=== PATIENT | male | born 1975 | race Caucasian/White ===

== ENCOUNTER 2016-08-23 10:14 | Emergency (ER) | payer OTHER ==
[~2016-08-23] VITALS: Ht 188 cm; Wt 82.7 kg
[2016-08-23 10:17] VITALS: BP 133/88; PULSE 97; RESP 17; O2SAT 98
--- NOTE | 2016-08-23 10:33 | ED.REPORT ---
HPI-Rash / Abscess Date of Service Aug 23, 2016 ED Provider: Dr. Felix Small The patient is a 41 year old male w/ a hx of epilepsy who presents to the ED c/ o an abscess in the left armpit onset a few days ago. Pt describes the abscess as painful. Nursing Notes Stated Complaint: BOIL UNDER ARM Chief Complaint: Skin Rash/Abscess Nursing Notes Reviewed: Yes Allergies: Coded Allergies: No Known Allergies (Unverified , 08/23/16) Scheduled Sulfamethoxazole/Trimeth 800-160 mg (Bactrim DS) 1 Each Tablet 1 TABLET PO BID Scheduled PRN Hydrocodone-Acetaminophen 5-325 mg (Hydrocodone-Acetaminophen 5-325 mg) 1 Each Tablet 1 TABLET PO Q4H PRN PRN For Pain General Time Seen by MD: 10:32 Chief Complaint Abscess Hx Obtained From: Patient Arrived By: Walk-in Onset Occurred: 2 days ago Symptom Duration: Since onset Location: : Arm Quality: Painful Severity: Current: No pain currently Recent Healthcare: Recent doctor visit Similar Sx Previous: No Review of Systems Constitutional: Denies: Chills, Fever Musculoskeletal: Denies: Extremity pain, Extremity swelling, Joint pain, Joint swelling Skin: Reports Swelling (abscess in left armpit) Complete sys rev & neg: except as marked. Hematologic: Denies Bleeding Physical Exam Initial Vital Signs Vital Signs (First) Date Time Temp Pulse Resp B/P Pulse Ox O2 Delivery O2 Flow Rate FiO2 08/23/16 10:17 36.5 97 17 133/88 98 Room Air Initial VS: Reviewed General/Constitutional: Awake, Alert, No acute distress, Cooperative Abscess #1 Location/Condition: Positive: Location (left armpit) Head / Eyes: Normocephalic swollen right eye healing fractured right jaw (from previous incident) healing fractured right scalp (from previous incident) ENT: Atraumatic, Mucous membranes moist Upper Extremity / MS: Atraumatic, Inspection NL, Full range of motion, No deformity Lower Extremity / Pelvis / MS: Atraumatic, Inspection NL, Full range of motion , No deformity Neurologic: Oriented X3, Speech NL, No motor deficits Psychiatric: Affect NL, Mood NL Procedures Incision & Drainage Abscess Time: 10:44 Procedure Performed by: ED physician Consent / Setup / Site Prep: Informed consent provided, Consent from patient , Hand hygiene observed, Stand sterile technique, Standard surgical scrub, Sterile drapes applied Location of Abscess: left armpit Skin Preparation Agent: Betadine Local Anesthesia: Lidocaine 1% Post-Procedure / Complications: Dressing applied, No complications, Condition improved, Tolerated procedure well, Patient stable Re-Eval/Medical Decision Re-Evaluation/Progress : Time of Eval: 10:40 Re-Evaluation/Progress Note: Abscess incision and drainage performed. Bedside ultrasound used. Pt tolerated procedure well. Plan for discharge with pain medication. Pt understands and agrees with plan. All questions addressed. Counseled Regarding: Diagnosis, Lab results, Need for follow-up, When/why to return to ED Discharge & Departure Impression: Primary Impression: Abscess Disposition: Home Discharge Condition All VS Reviewed: Yes Condition: Stable Patient Instructions: Abscess (ED), Abscess Incision and Drainage (DC) Additional Instructions: Thank you for entrusting us with your care today. I drained and bandaged the abscess in your armpit. Keep the wound clean and dry, apply antibiotic ointment twice daily. The abscess should improve over the next few days. Take Ibuprofen and Tylenol as directed for pain. I am sending you home with pain medication. Do not drink alcohol, do drugs, or operate heavy machinery while on narcotics. Return to the Emergency Department if you experience any new or worsening symptoms including any signs of infection such as increased swelling, redness, warmth, fever or chills. I hope your fractures continue to heal quickly! Take the prescribed antibiotic (trimethoprim sulfa) twice daily for 7 days. Felix Small MD Aug 23, 2016 10:33 Bernadine Lee Aug 23, 2016 10:41
[2016-08-23] MEDS ORDERED: SULF1TAB7 PO (10:58)
[2016-08-23] MEDS ORDERED: HYDR-4003 PO (10:58)
== END 2016-08-23 11:08 | disposition home or self-care (01) ==
LOC: SED 10:14
DX: L02.412 Cutaneous abscess of left axilla (principal)

== ENCOUNTER 2016-08-27 19:12 | Emergency (ER) | payer OTHER ==
[~2016-08-27] VITALS: Ht 188 cm; Wt 77.3 kg
[~2016-08-27 19:12] MED LIST: HYDR-4003 PO; SULF1TAB7 PO
[2016-08-27 19:23] VITALS: BP 154/83; PULSE 101; RESP 21; O2SAT 97
--- NOTE | 2016-08-27 20:49 | ED.REPORT ---
HPI-General Illness Date of Service Aug 27, 2016 ED Provider: Thaddeus Matta MD A 41 year old male with a history of seizures presents to the ED complaining of an abscess. The pt was seen in the ED on 08/23/2016 to have an abscess under his left arm drained and was prescribed Bactrim at that time. He is still taking this medication but has noticed that the original abscess is still present and another has formed just under it. The pt denies fever. Nursing Notes Stated Complaint: ABSCESSES UNDER LEFT ARM Chief Complaint: Skin Rash/Abscess Nursing Notes Reviewed: Yes Allergies: Coded Allergies: No Known Allergies (Unverified , 08/27/16) Scheduled Sulfamethoxazole/Trimeth 800-160 mg (Bactrim DS) 1 Each Tablet 1 TABLET PO BID Scheduled PRN Hydrocodone-Acetaminophen 5-325 mg (Hydrocodone-Acetaminophen 5-325 mg) 1 Each Tablet 1 TABLET PO Q4H PRN PRN For Pain General Time Seen by MD: 20:47 Chief Complaint Other (Abscess) Hx Obtained From: Patient Arrived By: Walk-in Sudden in Onset?: No Onset Occurred: 4 days ago Symptom Duration: Since onset Recent Healthcare: Recent doctor visit Similar Sx Previous: Yes Past Medical History Past Medical History seizures Past Surgical History none reported Smoking History Unknown if Ever Smoker Social History recently moved to [facility] Ambulatory Status Independent Review of Systems abscess pain of left axilla Full Review of Systems Constitutional: Denies: Fever Respiratory: Denies: Non-productive cough, Shortness of breath Cardiovascular: Denies: Chest pain GI: Denies: Abdominal pain, Vomiting Complete sys rev & neg: except as marked. Physical Exam Vital Signs Vital Signs Date Time Temp Pulse Resp B/P Pulse Ox O2 Delivery O2 Flow Rate FiO2 08/27/16 21:28 90 16 149/77 97 Room Air 08/27/16 19:23 37.2 101 21 154/83 97 Room Air Initial VS: Reviewed General/Constitutional: Awake, Alert Head / Eyes: Atraumatic, Normocephalic, PERRL, EOMI ENT: Atraumatic, Airway patent, Mucous membranes moist Neck: Atraumatic, Supple, Full range of motion Respiratory / Chest: Atraumatic, Breath sounds NL, Breath sounds = bilat, No respiratory distress Cardiovascular: Heart rate NL, Regular rhythm, Heart sounds NL, No gallop, No murmurs, No rubs Abdomen: Atraumatic, Soft, Non-tender Back: Atraumatic, Full range of motion Upper Extremities Upper Extremity / MS: Full range of motion, Neurologic intact, Vascular intact full active range of motion of the left shoulder Lower Extremity / Pelvis / MS: Atraumatic, Full range of motion Skin: Color NL, Warm, Dry two axillary abscesses of approximately 5 mm each tender and firm without surrounding warmth or erythema Neurologic: Oriented X3, Speech NL, No motor deficits, No sensory deficits Psychiatric: Affect NL, Mood NL Procedures Incision & Drainage Abscess Time: 20:57 Procedure Performed by: ED physician Consent / Setup / Site Prep: Informed consent provided, Consent from patient , Time-out performed, Hand hygiene observed, Stand sterile technique, Standard surgical scrub, Sterile drapes applied Location of Abscess: left axilla Skin Preparation Agent: Betadine, Other (Wound rinse solution) Local Anesthesia: Lidocaine w epi 1% Incised Abscess with Scalpel: #11 Pus Drained: Small Irrigation: Yes Post-Procedure / Complications: Packing placed, Dressing applied, No complications, Condition improved, Tolerated procedure well, Patient stable Re-Eval/Medical Decision Med Decision/Clinical Course Looks well, mild tachycardia wound culture sent. Source of Hx: Old records Time of Eval: 20:57 Patient Status: Condition improved Re-Evaluation/Progress Note: Pt rechecked and I&D abscess is performed. Pt tolerated well and there were no complications. The diagnosis and plan for discharge are discussed. The pt understands and agrees with the plan. All questions are addressed at this time. Counseled Regarding: Diagnosis, Need for follow-up, When/why to return to ED Discharge & Departure Primary Impression: Abscess Disposition: Home Discharge Condition All VS Reviewed: Yes Condition: Stable Patient Instructions: Abscess (ED) Additional Instructions: Keep wound clean and covered. Do not submerge wound in water until healed. Return to emergency department in 3 days for a wound check, return sooner for redness swelling increasing pain or fevers. Patient previously prescribed antibiotics. Referrals: [facility] Scribe Attestation Portions of this note were transcribed by Pramod Elizondo. I, Dr. Matta personally performed the history, physical exam and medical decision-making; I reviewed and confirmed the accuracy of the information in the transcribed note. Signed by: Julio César Moffett, 08/27/2016 and 2143. copies to: [facility] Thaddeus Matta MD Aug 27, 2016 20:49 PRAMOD ELIZONDO Aug 27, 2016 20:56
[2016-08-27 21:28] VITALS: BP 149/77; PULSE 90; RESP 16; O2SAT 97
== END 2016-08-27 21:29 | disposition home or self-care (01) ==
LOC: SED 19:12
DX: L02.412 Cutaneous abscess of left axilla (principal)

== ENCOUNTER 2016-09-08 10:37 | Emergency (ER) | payer OTHER ==
[~2016-09-08] VITALS: Ht 188 cm; Wt 75.9 kg
[2016-09-08 10:48] VITALS: BP 124/78; PULSE 103; RESP 18; O2SAT 98
== END 2016-09-08 12:30 | disposition left against medical advice (07) ==
LOC: SED 10:37
DX: Z53.20 Procedure and treatment not carried out because of patient's decision for unspecified reasons (principal)

== ENCOUNTER 2016-09-30 14:10 | Emergency (ER) | payer OTHER ==
[~2016-09-30] VITALS: Ht 188 cm; Wt 77.3 kg
[2016-09-30 14:12] VITALS: BP 108/77; PULSE 98; RESP 15; O2SAT 98
--- NOTE | 2016-09-30 15:03 | DRSVH ---
PROCEDURE: CT BRAIN WITHOUT CONTRAST ([id number]) INDICATIONS: seizure hit front of head TECHNIQUE: Noncontrast 4.5 mm thick angled axial sections acquired from the foramen magnum to the vertex, with c oronal reformats. COMPARISON: None. FINDINGS: Image quality: Diagnostic. Brain: There is no acute intra-axial or extra-axial hemorrhage. No extra-axial fluid collection is i dentified. There is no midline shift or mass effect. The orbits are grossly unremarkable. No large areas of diffusely decreased attenuation are evident within the brain to suggest diffuse cer ebral edema. No focal parenchymal abnormality is identified. The ventricles and cortical sulci are age-appropriate. Bones: No displaced nasal bone fracture is identified, which is more prominent involving the right na reynaldo bone. There is prominent rightward deviation of the bony nasal septum, which is incompletely juan alberto luated. Subtle lucencies involving the right sphenoid versus temporal bone are present adjacent to t he right lateral orbital wall (image 7, series 5), which may represent a subtle fracture. Otherwise, the remainder of the calvarium and visualized facial bones are grossly intact. The imaged paranasal sinuses and mastoid air cells are clear. IMPRESSION: 1. No acute intracranial hemorrhage is evident. 2. Apparent nasal bone fracture and potential right sphenoid versus temporal bone fracture. CT of t he facial bones would be helpful for better evaluation, if indicated. Dictated by: Lewis Smith M.D. on 09/30/2016 at 13:56 Approved by: Lewis Smith M.D. on 09/30/2016 at 14:01
[2016-09-30 15:04] LABS: BASOPHILS % (AUTO) 0.5 % (0-3); EOSINOPHILS % (AUTO) 1.3 % (0-5); MONOCYTES % (AUTO) 7.8 % (4-12); Mean Corpuscular Hemoglobin 32.8 pg (27.0-35.0); Mean Corpuscular Volume 90.8 fL (81-100); NEUTROPHILS % (AUTO) 79.6 % (40-74); Platelet Count 189 bil/L (150-400)
--- NOTE | 2016-09-30 15:07 | DRSVH ---
PROCEDURE: CT CERVICAL SPINE WITHOUT CONTRAST ([id number]) INDICATIONS: seizure hit front of head TECHNIQUE: Noncontrast 3 mm thick sections acquired from the skull base to the T4 level. Sagittal and coronal r eformats were then constructed. For radiation dose reduction, the following was used: automated exp osure control, adjustment of mA and/or kV according to patient size. COMPARISON: None. FINDINGS: Image quality: Diagnostic Bones: The craniocervical and atlantoaxial joints are well-maintained. The odontoid is intact. The vertebral body heights and prevertebral soft tissues are within normal limits throughout the cervical spine without evidence to suggest acute compression fracture. No other fractures are evident within the cervical spine. The bone mineralization is within normal limits. Mild degenerative changes of the cervical spine are present demonstrating areas of mild disc height l oss and facet arthrosis. These findings are more pronounced at the level of C5-6. Soft tissues: No prevertebral soft tissue swelling. The imaged lung apices are clear. Imaged porti ons of the mediastinum are unremarkable. Otherwise, the remainder of the imaged soft tissues of the neck are within normal limits. IMPRESSION: 1. No acute fracture of the cervical spine. 2. Mild degenerative changes of the cervical spine. Dictated by: Lewis Smith M.D. on 09/30/2016 at 14:01 Approved by: Lewis Smith M.D. on 09/30/2016 at 14:05
--- NOTE | 2016-09-30 15:08 | ED.REPORT ---
HPI-Seizure Date of Service Sep 30, 2016 ED Provider: Felix Small MD Patient is a 41 year old male with a history of seizures who presents to the ED status post seizure according to the patient. The patient reports that he got dizzy while washing dishes but doesn't remember anything after. He complains of a headache, back and neck pain. Per the patient's , she found him laying on the ground with his neck in an awkward position. He denies fever or problems walking. The patient states that he hasn't been taking his seizure medication because he ran out. Nursing Notes Stated Complaint: DIZZY,BODY PAIN Chief Complaint: Seizure Nursing Notes Reviewed: Yes Allergies: Coded Allergies: No Known Allergies (Unverified , 08/27/16) Scheduled Phenytoin Sodium ER (Dilantin) 100 Mg Capsule 300 MG PO BID Sulfamethoxazole/Trimeth 800-160 mg (Bactrim DS) 1 Each Tablet 1 TABLET PO BID Scheduled PRN Hydrocodone-Acetaminophen 5-325 mg (Hydrocodone-Acetaminophen 5-325 mg) 1 Each Tablet 1 TABLET PO Q4H PRN PRN For Pain Hydrocodone-Acetaminophen 5-325 mg (Hydrocodone-Acetaminophen 5-325 mg) 1 Each Tablet 1 TABLET PO Q4H PRN PRN For Pain General Time Seen by Provider: 15:11 Chief Complaint Chief Complaint: Seizure, generalized Hx Obtained From: Patient, Spouse Arrived By: Walk-in Onset Occurred: Just prior to arrival Progression Since Onset: Resolved Location: : Back lower: Head: Neck Quality: Painful Severity: Current: Moderate Similar Sx Previous: Yes Past Medical History Past Medical History seizures Past Surgical History none reported Smoking History Unknown if Ever Smoker Social History recently moved to [facility] 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 Other Social History: Good social support, Ambulatory Status Independent Review of Systems Constitutional: Denies: Chills, Fever Respiratory: Denies: Non-productive cough, Shortness of breath Musculoskeletal: Reports: Back pain Skin: Denies Itching, Denies Rash Neurologic: Reports: Change LOC, Dizziness, Headache, Seizure, Denies: Numbness, Problem walking, Weakness Complete sys rev & neg: except as marked. Physical Exam Initial Vital Signs Vital Signs (First) Date Time Temp Pulse Resp B/P Pulse Ox O2 Delivery O2 Flow Rate FiO2 09/30/16 14:12 36.8 98 15 108/77 98 Room Air Initial VS: Reviewed General/Constitutional: Awake, Alert Neck: Atraumatic, Supple limited range of motion secondary to pain posterior spinal tenderness Respiratory / Chest: Atraumatic, Breath sounds NL, Breath sounds = bilat, No respiratory distress Cardiovascular: Heart rate NL, Regular rhythm, Heart sounds NL Neurologic: Oriented X3, Speech NL, No motor deficits, No sensory deficits Head / Eyes: Normocephalic, PERRL, EOMI contusion over the left eyebrow full range of motion of the eyes tenderness over the zygomatic arch and infraorbit no crepitus no erythema ENT: Airway patent, Mucous membranes moist nose deformed to the left tender over the nasal bridge Skin: Atraumatic, Color NL, No rash, Warm, Dry Psychiatric: Affect NL, Mood NL Interpretation & Diagnostics Interpretation & Diagnostics: FACIAL CT: IMPRESSION: What appears to be old facial fractures are present but no definite acute facial fractures seen. There are no comparison prior CT scans available for review but presumably such studies could be obtained and compared to address chronic versus possible superimposed acute injury. Dictated by: Chris Davis M.D. on 09/30/2016 at 15:58 Approved by: Chris Davis M.D. on 09/30/2016 at 16:03 Lab Results Interpretation Result Diagram: 09/30/16 1445 09/30/16 1445 Test 09/30/16 14:45 White Blood Count 10.5th/mm3 (3.8-10.1) Red Blood Count 4.67mil/mm3 (4.40-5.80) Hemoglobin 15.3g/dL (13.8-17.2) Hematocrit 42.4% (41.0-50.0) Mean Corpuscular Volume 90.8fL (81-100) Mean Corpuscular Hemoglobin 32.8pg (27.0-35.0) Mean Corpuscular Hemoglobin Concent 36.1% (32.0-37.0) Red Cell Distribution Width 12.7% (12.3-15.4) Platelet Count 189bil/L (150-400) Neutrophils (%) (Auto) 79.6% (40-74) Lymphocytes (%) (Auto) 10.6% (14-46) Monocytes (%) (Auto) 7.8% (4-12) Eosinophils (%) (Auto) 1.3% (0-5) Basophils (%) (Auto) 0.5% (0-3) Prothrombin Time 10.6sec (8.1-12.5) Prothromb Time International Ratio 0.99ratio Sodium Level 137mEq/L (134-144) Potassium Level 4.2mEq/L (3.5-5.2) Chloride Level 102mEq/L (97-108) Carbon Dioxide Level 22mmol/L (18-29) Blood Urea Nitrogen 13mg/dL (6-24) Creatinine 0.97mg/dL (0.76-1.27) Estimat Glomerular Filtration Rate 90mL/min (>59) Glucose Level 96mg/dL (60-99) Calcium Level 9.2mg/dL (8.5-10.1) Magnesium Level 2.2mg/dL (1.6-2.6) Total Bilirubin 0.3mg/dL (0.0-1.2) Aspartate Amino Transf (AST/SGOT) 19U/L (0-50) Alanine Aminotransferase (ALT/SGPT) 20U/L (0-44) Alkaline Phosphatase 65U/L (25-150) Total Protein 6.7g/dL (6.4-8.4) Albumin 4.3g/dL (3.4-5.0) Phenytoin (Dilantin) Level 1.2uG/mL (10.0-20.0) CT Head Interpretation IMPRESSION: 1. No acute intracranial hemorrhage is evident. 2. Apparent nasal bone fracture and potential right sphenoid versus temporal bone fracture. CT of the facial bones would be helpful for better evaluation, if indicated. Dictated by: Lewis Smith M.D. on 09/30/2016 at 13:56 Approved by: Lewis Smith M.D. on 09/30/2016 at 14:01 Interpretation / Wet Read by: Interpret - Radiologist CT C-Spine Interpretation IMPRESSION: 1. No acute fracture of the cervical spine. 2. Mild degenerative changes of the cervical spine. Dictated by: Lewis Smith M.D. on 09/30/2016 at 14:01 Approved by: Leiws Smith M.D. on 09/30/2016 at 14:05 Interpretation / Wet Read by: Interpret - Radiologist Re-Eval/Medical Decision Re-Evaluation/Progress : Time of Eval: 16:19 Re-Evaluation/Progress Note: Discussed results and plan for discharge. Patient understands and agrees to plan. All questions were addressed. Counseled Regarding: Diagnosis, Lab results, Need for follow-up, When/why to return to ED Discharge & Departure Impression: Primary Impression: Seizure Additional Impressions: Concussion Encounter type: initial encounter Loss of consciousness presence/duration: with LOC of 30 min or less Qualified Code: S06.0X1A - Concussion with loss of consciousness of 30 minutes or less, initial encounter Contusion of head Encounter type: initial encounter Contusion of head detail: scalp Qualified Code: S00.03XA - Contusion of scalp, initial encounter Superficial thrombophlebitis Superficial thrombophlebitis-Involved body area: upper extremity Laterality: right Qualified Code: I80.8 - Phlebitis and thrombophlebitis of other sites Disposition: Home Discharge Condition All VS Reviewed: Yes Condition: Stable Patient Instructions: Generalized Tonic Clonic Seizures (ED), Superficial Thrombophlebitis (ED) Additional Instructions: Your X-rays today showed that you do not have any new facial fractures. There was evidence of old facial fractures. You can use ibuprofen 3x a day to help with your inflamed vein. Using hot packs can also help. Take Dilantin 300 mg twice daily. This prescription was sent electronically. Use hydrocodone as needed for more severe pain one or 2 tablets every 4 hours. Keep your follow up appointment with Dr. Delarosa, on October 16 at 3pm, regarding your seizure medications. Return to the emergency department if you develop any new or concerning symptoms. Referrals: Yolette Delarosa MD Attestation Portions of this note were transcribed by Homa Khanna. I, Dr. Small personally performed the history, physical exam and medical decision-making; I reviewed and confirmed the accuracy of the information in the transcribed note. Signed by: Julio César Beck, 09/30/16 copies to: Yolette Delarosa MD, Kirk H MD Sep 30, 2016 15:08 Capri Khanna Sep 30, 2016 15:17
[2016-09-30 15:21] LABS: INR 0.99 ratio
[2016-09-30 15:41] LABS: Magnesium 2.2 mg/dL (1.6-2.6)
[2016-09-30] MEDS ORDERED: PHN100C PO (15:42)
[2016-09-30] MEDS ORDERED: HYDR-4003 PO (15:42)
[2016-09-30] MEDS ORDERED: Phenytoin 100 mg ER Capsule PO ONE (15:45)
[2016-09-30] MEDS ORDERED: HYDROcodone-APAP 10-325 mg PO ONE (15:45)
--- NOTE | 2016-09-30 16:04 | DRSVH ---
PROCEDURE: CT FACE WITHOUT CONTRAST ([id number]) INDICATIONS: trauma TECHNIQUE: Noncontrast 1.5 mm thick axial images acquired from the mandible through the frontal sinuses, with co pastor and sagittal reformatting. For radiation dose reduction, the following was used: automated ex posure control. COMPARISON: [facility], CT, CT CERVICAL SPINE WO CON, 09/30/2016, 14:36. [facility], CT, CT BRAIN WO CON, 09/30/2016, 14:36. FINDINGS: Image quality: Excellent. Bones and teeth: Orbital bailey are intact except for what appears to be a nonunion fracture, chronic , at the right orbital rim (series 4 image 46). Additionally, there is prominent rightward deviation of the middle third of the midline nasal septum, with leftward deviation more anteriorly and bilater al nasal bone fractures deviated leftward are present but these appear likely chronic. Sinus bailey s how no fracture or deformity on the left but there is a lateral wall presumed old fracture given the acute angulation centered on series 4 image 60. Visualized portions of the mandible demonstrate no f ractures or subluxation. Zygomatic arches are intact. Pterygoid plates are intact. Visualized port ions of the skull base and auditory canals are intact. Sinuses: Paranasal sinuses are aerated, without fluid levels, mucosal thickening, or mucoceles. Mas toid air cells are aerated. Soft tissues: No edema, masses, or fluid collections. No enlarged lymph nodes. No soft tissue lace rations or debris. Vascular: Visualized vascular structures appear normal in the absence of contrast. Bony vascular fo ramina and canals are intact. IMPRESSION: What appears to be old facial fractures are present but no definite acute facial fracture s seen. There are no comparison prior CT scans available for review but presumably such studies coul d be obtained and compared to address chronic versus possible superimposed acute injury. Dictated by: Chris Davis M.D. on 09/30/2016 at 15:58 Approved by: Chris Davis M.D. on 09/30/2016 at 16:03
[2016-09-30 16:40] VITALS: BP 124/73; PULSE 77; O2SAT 100
== END 2016-09-30 16:41 | disposition home or self-care (01) ==
LOC: SED 14:10
DX: S06.0X1A Concussion with loss of consciousness of 30 minutes or less, initial encounter (principal); S00.03XA Contusion of scalp, initial encounter; R56.9 Unspecified convulsions; I80.8 Phlebitis and thrombophlebitis of other sites; X58.XXXA Exposure to other specified factors, initial encounter; Y93.E9 Activity, other interior property and clothing maintenance; Y92.9 Unspecified place or not applicable; Y99.8 Other external cause status

== ENCOUNTER 2016-10-09 00:08 | Inpatient (IN) | payer OTHER ==
[~2016-10-09] VITALS: Ht 177.8 cm; Wt 78.8 kg
[2016-10-09] VITALS (14 sets, daily range): BP systolic 98–135; BP diastolic 62–94; PULSE 71–97; RESP 14–25; O2SAT 92–98
[~2016-10-09 00:08] MED LIST changes: +PHN100C PO
--- NOTE | 2016-10-09 00:17 | ED.REPORT ---
HPI-Seizure Date of Service Oct 09, 2016 ED Provider: Dr. Mcpherson Pt is a 41 year old male with a hx of seizures presenting to the ED via EMS after having 3 tonic-clonic seizures today, the first one at 2330, lasting for about 10 minutes each 2-3 minutes apart which were witnessed by his fiance. Associated symptoms include sharp neck pain, ear drainage, shaking and weakness in his legs, nausea, SOB, urinary incontinence, numbness in his tongue, and double vision. His fiance states that these episodes were different than usual, because when she would sit him up he wouldn't stop seizing whereas he usually does, and the LE weakness preceded the seizure. Pt usually gets about 4-5 seizures a month and last saw a neurologist at least 6 years ago. Pt has a hx of alcohol abuse but states that he last had EtOH 4 months ago, besides one beer he had this morning. The pt was seen in the ED 8 days ago for a seizure and was prescribed his regular seizure medication (Dilantin) because he had run out. Nursing Notes Stated Complaint: SEIZURES Chief Complaint: Seizures Nursing Notes Reviewed: Yes Allergies: Coded Allergies: No Known Allergies (Unverified , 10/09/16) Scheduled Phenytoin Sodium ER (Dilantin) 100 Mg Capsule 300 MG PO BID General Time Seen by Provider: 00:16 Chief Complaint Chief Complaint: Seizure, generalized Hx Obtained From: Patient, Spouse, EMS Arrived By: Ambulance Onset Occurred: 1 - 4 hours ago Symptom Duration: Since onset Location: : Neck Quality: Painful, Sharp Severity: Current: Moderate Severity: Maximum: Severe Recent Healthcare: No recent doctor visit, No recent hospitalization Similar Sx Previous: Yes Past Medical History Past Medical History seizures Past Surgical History Pt reports that he has a brain shunt to drain hydrocephalus but there is no shunt present on CT Reports: Appendectomy Smoking History Current Every Day Smoker Social History recently moved to [facility] from [place] 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 Other Social History: Good social support, Ambulatory Status Independent Review of Systems Eyes: Reports: Diplopia Ears / Nose / Throat: Reports: Ear drainage left Respiratory: Reports: Shortness of breath Musculoskeletal: Reports: Neck pain Neurologic: Reports: Focal weakness, Numbness, Seizure, Shaking Complete sys rev & neg: except as marked. GI: Reports: Nausea Male: Reports Incontinence Physical Exam Initial Vital Signs Vital Signs (First) Date Time Temp Pulse Resp B/P Pulse Ox O2 Delivery O2 Flow Rate FiO2 10/09/16 00:28 88 19 135/94 97 Room Air 10/09/16 01:45 2 Initial VS: Reviewed Abdomen / GI: Soft, Non-tender, No guarding, No rebound, No distention Extremities: Vascular intact, Neuro intact, No swelling, No tenderness Skin: Warm, Dry, No cyanosis Psychiatric: Mood/affect normal, Behavior normal, Normal thought content General/Constitutional: Awake, Alert, No acute distress Neck: Atraumatic, Supple, No meningismus, Full range of motion Respiratory / Chest: Breath sounds NL, Breath sounds = bilat, No respiratory distress, No rales, No rhonchi, No wheezing Cardiovascular: Heart rate NL, Regular rhythm, Heart sounds NL, Peripheral circulation NL Neurologic: Oriented X3, Speech NL, No motor deficits, No sensory deficits, CN II - XII intact, Reflexes equal bilat, Cerebellar NL Coherent. Initially his legs were shaking rapidly but they stopped after Ativan was given. Head / Eyes: Atraumatic, Normocephalic, PERRL, EOMI Shunt palpable behind left ear. ENT: Atraumatic, Airway patent, Mucous membranes moist, Pharynx NL Left TM normal. Right ear yellowish plaque posterior external auditory canal. No active drainage. Edentulous. Tongue atraumatic. Interpretation & Diagnostics CT C SPINE: IMPRESSION: No acute fractures or malalignment in the cervical spine. This report was transmitted to the emergency room at 10/09/2016 - 1:23:39 AM PDT. Urine Tox positive for THC and Barbiturates Lab Results Interpretation Result Diagram: 10/10/16 0733 10/10/16 0733 Test 10/09/16 00:16 10/09/16 00:30 Hold Purple Top Tube Received (Received) Prothrombin Time 10.0sec (8.1-12.5) Prothromb Time International Ratio 0.94ratio Activated Partial Thromboplast Time 28.3sec (22.8-33.0) Hold Blue Top Tube Received (Received) Magnesium Level 1.9mg/dL (1.6-2.6) Hold Henderson Top Tube Received (Received) Alcohols < 10mg/dL (0-10) Urine Color Yellow (YELLOW) Urine Appearance Clear (CLEAR,HAZY) Urine pH 8.0 (5.0-8.0) Urine Specific [place] 1.007 (1.003-1.035) Urine Protein Negativemg/dL (NEG,TRACE) Urine Glucose (UA) Negativemg/dL (NEGATIVE) Urine Ketones Negativemg/dL (NEGATIVE) Urine Occult Blood Negative (NEGATIVE) Urine Nitrite Negative (NEGATIVE) Urine Bilirubin Negative (NEGATIVE) Urine Urobilinogen Normalmg/dL (NORMAL) Urine Leukocyte Esterase Negative (NEGATIVE) Urine RBC 0-2/hpf (0-2) Urine WBC 0-5/hpf (0-5) Urine Epithelial Cells None/hpf (NONE-MOD) Urine Crystals None seen (NONE SEEN) Urine Bacteria None/hpf (NONE-FEW) Urine Hyaline Casts None/lpf (NONE) Urine Granular Casts None seen (NONE SEEN) Urine Waxy Casts None seen (NONE SEEN) Urine Red Blood Cell Casts None seen (NONE SEEN) Urine White Blood Cell Casts None seen (NONE SEEN) Urine Mucus None seen (None Seen) Urine Trichomonas None seen (NONE SEEN) Urine Yeast None (NONE SEEN) Urinalysis Comment None Urine Culture Reflexed Not indicated Urine Opiates Screen Negative Urine Methadone Screen Negative Urine Barbiturates Screen Negative Urine Amphetamines Screen Negative Urine Benzodiazepines Screen Negative Urine Cocaine Metabolite Screen Negative Urine Cannabinoids Screen Negative Laboratory Tests 72 Hours Test 10/09/16 00:16 10/09/16 00:30 White Blood Count 12.2th/mm3 (3.8-10.1) Red Blood Count 4.89mil/mm3 (4.40-5.80) Hemoglobin 15.9g/dL (13.8-17.2) Hematocrit 44.2% (41.0-50.0) Mean Corpuscular Volume 90.4fL (81-100) Mean Corpuscular Hemoglobin 32.5pg (27.0-35.0) Mean Corpuscular Hemoglobin Concent 36.0% (32.0-37.0) Red Cell Distribution Width 12.3% (12.3-15.4) Platelet Count 230bil/L (150-400) Neutrophils (%) (Auto) 63.7% (40-74) Lymphocytes (%) (Auto) 26.3% (14-46) Monocytes (%) (Auto) 7.5% (4-12) Eosinophils (%) (Auto) 1.7% (0-5) Basophils (%) (Auto) 0.6% (0-3) Hold Purple Top Tube Received (Received) Prothrombin Time 10.0sec (8.1-12.5) Prothromb Time International Ratio 0.94ratio Activated Partial Thromboplast Time 28.3sec (22.8-33.0) Hold Blue Top Tube Received (Received) Sodium Level 136mEq/L (134-144) Potassium Level 4.5mEq/L (3.5-5.2) Chloride Level 96mEq/L (97-108) Carbon Dioxide Level 20mmol/L (18-29) Blood Urea Nitrogen 20mg/dL (6-24) Creatinine 1.00mg/dL (0.76-1.27) Estimat Glomerular Filtration Rate 87mL/min (>59) Glucose Level 115mg/dL (60-99) Calcium Level 9.4mg/dL (8.5-10.1) Magnesium Level 1.9mg/dL (1.6-2.6) Total Bilirubin 0.2mg/dL (0.0-1.2) Aspartate Amino Transf (AST/SGOT) 23U/L (0-50) Alanine Aminotransferase (ALT/SGPT) 26U/L (0-44) Alkaline Phosphatase 85U/L (25-150) Total Protein 7.2g/dL (6.4-8.4) Albumin 4.5g/dL (3.4-5.0) Hold Henderson Top Tube Received (Received) Phenytoin (Dilantin) Level 50.8uG/mL (10.0-20.0) Alcohols < 10mg/dL (0-10) Urine Color Yellow (YELLOW) Urine Appearance Clear (CLEAR,HAZY) Urine pH 8.0 (5.0-8.0) Urine Specific [place] 1.007 (1.003-1.035) Urine Protein Negativemg/dL (NEG,TRACE) Urine Glucose (UA) Negativemg/dL (NEGATIVE) Urine Ketones Negativemg/dL (NEGATIVE) Urine Occult Blood Negative (NEGATIVE) Urine Nitrite Negative (NEGATIVE) Urine Bilirubin Negative (NEGATIVE) Urine Urobilinogen Normalmg/dL (NORMAL) Urine Leukocyte Esterase Negative (NEGATIVE) Urine RBC 0-2/hpf (0-2) Urine WBC 0-5/hpf (0-5) Urine Epithelial Cells None/hpf (NONE-MOD) Urine Crystals None seen (NONE SEEN) Urine Bacteria None/hpf (NONE-FEW) Urine Hyaline Casts None/lpf (NONE) Urine Granular Casts None seen (NONE SEEN) Urine Waxy Casts None seen (NONE SEEN) Urine Red Blood Cell Casts None seen (NONE SEEN) Urine White Blood Cell Casts None seen (NONE SEEN) Urine Mucus None seen (None Seen) Urine Trichomonas None seen (NONE SEEN) Urine Yeast None (NONE SEEN) Urinalysis Comment None Urine Culture Reflexed Not indicated Urine Opiates Screen Negative Urine Methadone Screen Negative Urine Barbiturates Screen Negative Urine Amphetamines Screen Negative Urine Benzodiazepines Screen Negative Urine Cocaine Metabolite Screen Negative Urine Cannabinoids Screen Negative CT Head Interpretation CONCLUSION: No acute intracranial abnormality. Incidental findings above. This report was transmitted to the emergency room at 10/09/2016 - 1:19:11 AM PDT. Study: Head CT no contrast Interpretation / Wet Read by: Interpret - Radiologist Re-Eval/Medical Decision Med Decision/Clinical Course I spoke with Dr. Ramirez at [facility] neurology who recommends admitting the patient and observing for seizure-like activity. Both at the patient's last visit and at this visit has been no witnessed seizure, however we treated him with Ativan twice because he felt he was about to seize and he was shaking with his legs. He was unable to hold still for the CT scan. She does not recommend a second agent for seizures at this time unless one is witnessed. If that happened she would recommend Keppra 2 g IV loading dose. She recommends neurochecks every 30 minutes and being admitted for likely 5 days or so until the level drift down to normal. We also consulted with poison control and they note that the most common symptoms of phenytoin toxicity is nystagmus, lethargy, confusion, and an ataxia , and that there is no specific treatment other than fluids, observation, and waiting. They note patient can be discharged home when he is neurologically normal, not necessarily when his levels returned to normal. I discussed with the patient and his significant other that I do not see a shunt on his CT scan. I called the radiologist to ask if a shunt can be seen as I do not see one and she did not comment on it initially. On review she notes no shunt At this time there are no acute abnormalities of the head or neck noted and the patient is awake although sleepy secondary to Ativan. Re-Evaluation/Progress #1: Time of Eval: 01:22 Patient Status: Condition improved Re-Evaluation/Progress Note: Pt sleeping comfortably, but when he is awakened he is groggy and states "I think I just had a seizure." Re-Evaluation/Progress #2: Time of Eval: 01:29 Patient Status: Condition improved Re-Evaluation/Progress Note: Informed of CT results and removed C collar. Pt had reported that he had a shunt in his brain but there is no shunt visualized on CT. Re-Evaluation/Progress #3: Time of Eval: 02:08 Patient Status: Condition improved Re-Evaluation/Progress Note: Discussed consultation with radiology and neurology at [facility] and plan for admission. Pt understands and agrees. Pt is sleepy but arousable. Consultation #1: Call Returned at: 02:04 Note: Radiology. There is not shunt. Consultation #2: Referral / Consult Name: Sulma Fitzpatrick DO Consulted With: Hospitalist Call Returned at: 02:23 Basket Turner: Will see patient, Agrees with plan, Accepts admit Counseled Regarding: Diagnosis, Lab results, Need for admission Discharge & Departure Impression: Primary Impression: Phenytoin toxicity Encounter type: initial encounter Injury intent: accidental or unintentional Qualified Code: T42.0X1A - Poisoning by hydantoin derivatives, accidental (unintentional), initial encounter Additional Impressions: Ataxia Epilepsy Epilepsy type: unspecified Intractability: not intractable Status epilepticus: without status epilepticus Qualified Code: G40.909 - Epilepsy, unspecified, not intractable, without status epilepticus History of alcohol abuse Disposition: ADMITTED TO HOSPITAL Discharge Condition All VS Reviewed: Yes Condition: Improved Referrals: NOPCP (PCP) Yolette Delarosa MD Attestation Portions of this note were transcribed by Bri Sanchez. I, Dr Mcpherson personally performed the history, physical exam and medical decision-making; I reviewed and confirmed the accuracy of the information in the transcribed note. Signed by: Julio César Hays, 10/08/2016. copies to: Yolette Delarosa MD, Gary R DO Oct 09, 2016 00:17 BRI SANCHEZ Oct 09, 2016 00:25
[2016-10-09 00:38] LABS: BASOPHILS % (AUTO) 0.6 % (0-3); EOSINOPHILS % (AUTO) 1.7 % (0-5); MONOCYTES % (AUTO) 7.5 % (4-12); Mean Corpuscular Hemoglobin 32.5 pg (27.0-35.0); Mean Corpuscular Volume 90.4 fL (81-100); NEUTROPHILS % (AUTO) 63.7 % (40-74); Platelet Count 230 bil/L (150-400)
[2016-10-09] MEDS ORDERED: 0.9% Sodium Chloride 1,000 ML IV SCH (03:02)
[2016-10-09] MEDS ORDERED: Senna-Docusate 8.6-50 mg Tablet PO PRN (03:05)
[2016-10-09] MEDS ORDERED: Alum-Mag Hydrox-Simeth 30 mL Suspension PO PRN (03:05)
[2016-10-09] MEDS ORDERED: Polyethylene Glycol (PEG) 17 Gm Powder PO PRN (03:05)
[2016-10-09] MEDS ORDERED: 0.9% Sodium Chloride 1,000 ML IV ONE ×2 (03:12)
[2016-10-09 03:22] LABS: APPEARANCE,URINE CLEAR (CLEAR,HAZY); COLOR,URINE YELLOW (YELLOW); OCCULT BLOOD,URINE NEGATIVE (NEGATIVE); UROBILINOGEN,URINE NORMAL (NORMAL)
--- NOTE | 2016-10-09 03:34 | PCM.HPMED ---
Subjective Date of Service Oct 09, 2016 Primary Provider: Admitting Physician: Sulma Fitzpatrick DO Primary Care Physician: Melonie Delarosa Attending Physician: Sulma Fitzpatrick DO Chief Complaint: Seizure History of Present Illness: Abdirahman Streeter is a 41-year-old male with past medical history significant for reported seizure disorder and hydrocephalus status post shunt who presents to the ED following seizures. Patient was recently seen by Dr. Small in the ED and given phenytoin as he had recently run out of his medications. Today he presents and per the ED physicians history he had been compliant with his medications. At the time of my examination patient had received 6 mg of Ativan and was sedated and responsive to only physical stimuli and family had left the hospital so history was unable to be obtained. The following history is obtained from the ED physician, Dr. Mcpherson's note: Pt is a 41 year old male with a hx of seizures presenting to the ED via EMS after having 3 tonic-clonic seizures today, the first one at 2330, lasting for about 10 minutes each 2-3 minutes apart which were witnessed by his fiance. Associated symptoms include sharp neck pain, ear drainage, shaking and weakness in his legs, nausea, SOB, urinary incontinence, numbness in his tongue, and double vision. His fiance states that these episodes were different than usual, because when she would sit him up he wouldn't stop seizing whereas he usually does, and the LE weakness preceded the seizure. Pt usually gets about 4-5 seizures a month and last saw a neurologist at least 6 years ago. Pt has a hx of alcohol abuse but states that he last had EtOH 4 months ago, besides one beer he had this morning. The pt was seen in the ED 8 days ago for a seizure and was prescribed his regular seizure medication (Dilantin) because he had run out. On presentation to the ED patient's vitals were pulse 88, respiratory rate 19, blood pressure 135/94, pulse oximetry 97% on room air. Patient immediately began to have shaking in his legs that he stated typically preceded his seizures and consequently he was given Ativan 2 mg. He was then sent to CT but continued to shake and was given additional dose of Ativan. CT head and neck obtained showed no acute intracranial process. Per ED physician patient and family continue to insist that he has a shunt present but this was not confirmed by imaging or physical exam. Initial labs revealed unremarkable CBC and CMP but patient did have a significantly elevated phenytoin level of 50.8. ED physician spoke both with poison control and Dr. Ramirez of [facility] neurology. Recommendations were to admit patient and observe for any further seizure activity or side effects from phenytoin toxicity. Review of Systems: Review of systems unable to complete due to patient's current status. Allergies Coded Allergies: No Known Allergies (Unverified , 10/09/16) Home Medications Obtained from ED physician's notes: Phenytoin 300 mg twice a day Hydrocodone acetaminophen 5-325 Q4H PRN PMH Obtain from ED notes: Seizure activity Chronic neck pain Surgical History Obtained from ED notes: Reported hydrocephalus status post shunt placement (no shunt seen on imaging today) Appendectomy Family History Unable to obtain due to patient's current state. Social History Hx Alcohol Use: Yes (prior alcohol abuse per ED physician) Hx Substance Use: Yes (THC) Hx Tobacco Use: Yes Smoking Status: Current Every Day Smoker Living Arrangement: with Family Additional Information Recently moved to [facility] from [place] Exam Vital Signs Vital Sign - Last Date Time Temp Pulse Resp B/P Pulse Ox O2 Delivery O2 Flow Rate FiO2 10/09/16 02:00 89 17 107/62 97 Nasal Cannula 2 Exam General: Disheveled gentleman lying in bed arousable to physical stimuli. HEENT: Normocephalic, atraumatic. External ears without defect. Pupils equal, round, and reactive to light and accommodation. Edentulous. Atraumatic tongue. Moist oral mucosa. Neck: Supple with full range of motion. No jugular venous distension. No lymphadenopathy or thyromegaly. Of note no scars present from reported shunt placement. Cardiovascular: Regular rate and rhythm with no murmurs, rubs, or gallops appreciated Pulmonary: Clear to auscultation bilaterally with faint crackles in the upper lung montez bilaterally. Normal respiratory effort with no use of accessory muscles. Abdomen: Bowel tones present. Soft, nontender, nondistended. No hepatosplenomegaly or masses appreciated. Extremities: No clubbing, cyanosis, edema, or lymphadenopathy appreciated. Skin: Normal temperature, turgor, and texture; no rash, ulcers, or subcutaneous nodules appreciated. Neurological: Difficult to assess as patient received a total of 6 mg of Ativan. Patient currently responsive to physical stimuli but does not answer questions or follow commands. Psychiatric: Unable to assess due to current state. Lab and Diagnostics Labs Phenytoin level of 50.8 Result Diagram: 10/09/16 0016 10/09/16 0016 X-Rays, CTs and MRIs CT Head Interpretation CONCLUSION: No acute intracranial abnormality. This report was transmitted to the emergency room at 10/09/2016 - 1:19:[address] C SPINE: IMPRESSION: No acute fractures or malalignment in the cervical spine. This report was transmitted to the emergency room at 10/09/2016 - 1:23:39 AM PDT. 12-lead ECG Normal sinus rhythm rate of 73 on 10/09/2016 at 0338 Assessment & Plan Abdirahman Streeter is a 41-year-old male with past medical history significant for reported seizure disorder and hydrocephalus status post shunt who presents to the ED following seizures. Admitted for monitoring of seizures and phenytoin toxicity. Phenytoin toxicity, present on admission, active. ED physician discussed case with Dr. Ramirez at [facility] neurology who recommended admitting the patient and observing for seizure-like activity. At this time she does not recommend any additional agent to control seizures unless one is witnessed. If he has a witnessed seizure she would recommend Keppra 2 g IV loading dose. ED physician also discussed case with poison control. Most common symptoms of phenytoin toxicity is nystagmus, lethargy, confusion, and ataxia. No specific treatment for toxicity other than fluids, observation, and waiting. - Patient is unsteady on feet at this time. Patient to stand only when assisted. - Neuro checks every 30 minutes per neurology's recommendations (for 2-3 hours following admission, then possible downgrade fro, CCU). - No electrolyte or EKG abnormalities. - Serial phenytoin levels. Phenytoin's half life of 7-[address] [facility] neurologist suspected that it would take at minimum 5 days to normalize. Although it is not required she would recommend keeping the patient until levels have normalized but at minimum until symptoms resolve. - Consider in-house neurology consult. Reported seizures, present on admission, active. - Head CT showed no acute intracranial process. - Blood alcohol less than 10. - Ativan 2 mg when necessary seizure activity. - Seizure precautions in place. - Neurochecks every 30 minutes as above. - No further medications unless there is a witnessed seizure. - No recommendation to complete MRI per [facility] neurology. - Recommend obtaining records from prior neurologist in [place]. Reported hydrocephalus status post shunt although not seen on CT of the head . - As above, recommend obtaining records from prior neurologist in [place] to better delineate history of hydrocephalus and possible previous shunt placement. Tobacco use disorder, present on admission, chronic. - Smoking cessation not given due to patient's current state. - Day team to consider nicotine patch. Patient is admitted under inpatient status with expected length of stay greater than 2 midnights due to severity of presenting symptoms, risk of adverse event, and complexity of treatment plan. Pain Evaluation: Adequate Pain Control VTE Prophylaxis: Sub-Q Heparin (Unfractionated) VTE Mechanical Devices: Intermittant Pneumatic CD Resuscitation Status: CPR: Attempt Resuscitation Attending Statement The patient was seen and examined together with house staff on 10/09/2016 and I agree with the history, exam and plan as outlined in the note above. ANDREI MI DO Oct 09, 2016 03:34 Sulma Fitzpatrick DO Oct 09, 2016 04:55
[2016-10-09] MEDS: 0.9% Sodium Chloride 1,000 ML IV SCH ×3 (03:49→20:39)
[2016-10-09 04:01] LABS: INR 0.94 ratio
--- NOTE | 2016-10-09 05:48 | NUR ---
Patient admitted to CCU at 0330 from ED with Dilantin toxicity, q30 min neuro checks at this time. On seizure precautions. Patient drowsy, lethargic, states he has dizziness and neck/head pain. Oriented to self, confused about what is happening and needs frequent reorientation. Bed alarm on, patient can be impulsive per ED report. Incomplete admission documentation, patient is poor historian and very drowsy, difficulty answering questions. Poison control called to check on patient, stated Dilantin level should come down to normal in around 24 hours. Patient's drowsiness and ataxia is expected. Patient's poison control case number is #[id number]. Patient requesting nicotine patch.
[2016-10-09 07:08] LABS: BASOPHILS % (AUTO) 0.5 % (0-3); EOSINOPHILS % (AUTO) 2.5 % (0-5); MONOCYTES % (AUTO) 8.8 % (4-12); Mean Corpuscular Hemoglobin 32.6 pg (27.0-35.0); Mean Corpuscular Volume 92.7 fL (81-100); NEUTROPHILS % (AUTO) 57.3 % (40-74); Platelet Count 161 bil/L (150-400)
--- NOTE | 2016-10-09 08:21 | DRSVH ---
PROCEDURE: CT BRAIN WITHOUT CONTRAST ([id number]) INDICATIONS: seizures, confusion TECHNIQUE: Noncontrast 4.5 mm thick angled axial sections acquired from the foramen magnum to the vertex, with c oronal reformats. COMPARISON: [facility], CT, CT BRAIN WO CON, 09/30/2016, 14:36. FINDINGS: Image quality: Excellent. CSF spaces: Basal cisterns are patent. No extra-axial fluid collections. Ventricles are normal in size and shape. Brain: No intracranial hemorrhage, mass, or mass effect. 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 Steele-white matter interface is other roque preserved. Skull and face: Calvarium appears intact. There are mildly displaced nasal bone fractures redemonst rated. Sinuses: Visualized sinuses and mastoids are clear. IMPRESSION: 1. No acute intracranial abnormality. Dictated by: Homero Phan M.D. on 10/09/2016 at 8:18 Approved by: Homero Phan M.D. on 10/09/2016 at 8:20
--- NOTE | 2016-10-09 08:39 | DRSVH ---
PROCEDURE: CT CERVICAL SPINE WITHOUT CONTRAST ([id number]) INDICATIONS: seizure, fall, neck pain TECHNIQUE: Noncontrast 3 mm thick sections acquired from the skull base to the T4 level. Sagittal and coronal r eformats were then constructed. For radiation dose reduction, the following was used: automated exp osure control, adjustment of mA and/or kV according to patient size. COMPARISON: [facility], CT, CT CERVICAL SPINE WO CON, 09/30/2016, 14:36. FINDINGS: Image quality: Excellent. Bones: No fractures or dislocations. There is mild multilevel disc space narrowing most prominent a t C5-C6 with mild endplate osteophytosis. There is also mild multilevel uncovertebral joint arthropa thy in the lower cervical spine. Mild multilevel facet arthropathy is also present. Visualized supe rior ribs are intact. Soft tissues: Prevertebral soft tissues are normal in thickness. No paravertebral hematomas. No ap ical pneumothoraces. IMPRESSION: 1. No fracture or subluxation. 2. Mild multilevel degenerative changes. Concordant with preliminary interpretation. Dictated by: Homero Phan M.D. on 10/09/2016 at 8:28 Approved by: Homero Phan M.D. on 10/09/2016 at 8:38
[2016-10-09] MEDS: Heparin 5,000 Unit/mL Inj SUBQ SCH ×3 (09:03→23:47)
[2016-10-09] MEDS ORDERED: Acetaminophen IV 1,000 MG in IV Premix 1 EACH IV ONE (09:50)
--- NOTE | 2016-10-09 10:29 | NUR ---
Social Work: Attempted Assessment/Multidisciplinary Rounds D: Per EMR review, pt is a 41 year old male admitted for dylantin toxicity. Pt discussed in multidisciplinary rounds; the patient has been downgraded to PCC status. Pt will likely be here another 1-2 days, per attending provider. Per H&P the patient has a history of ETOH use but states to admitting provider that he had not drank for 4 months. Pt is on CIWA protocol with a score of 3. No CD order placed at this time. HARDWOOD FLOOR REFINISHER attempted to meet with the patient at bedside. Pt is sleeping heavily and HARDWOOD FLOOR REFINISHER unable to wake patient with verbal cues. HARDWOOD FLOOR REFINISHER will return at a later time to attempt to complete assessment with the patient. Per EMR review, pt lives at home with his significant other. P: HARDWOOD FLOOR REFINISHER to return at a later time to attempt assessment with patient. will continue to follow to assess for d/c needs as well. CLAUDIA Marina
--- NOTE | 2016-10-09 12:05 | NUR ---
Evaluation completed. Please go to "Notes" then click on "Assessments and Notes" (bottom left corner of screen). Then select appropriate discipline tab on top of screen.
--- NOTE | 2016-10-09 15:35 | PCM.PNMED ---
Subjective Date of Service Oct 09, 2016 Subjective Subjective: Patient alert however obvious slow mentation along with other constellation of neurological symptoms which tend to wax and wane. He complains of increased pain in the neck which radiates forward. ROS: Headache Neck pain, dizziness Denies fever/chills, nausea/vomiting, headache, weakness, abdominal pain, chest pain, shortness of breath, increased swelling in hands or feet. Exam Vital Signs Vital Sign - Last Date Time Temp Pulse Resp B/P Pulse Ox O2 Delivery O2 Flow Rate FiO2 10/09/16 15:21 36.9 77 16 115/80 97 Room Air 10/09/16 02:00 2 Intake and Output 10/08/16 10/08/16 10/09/16 Cumulative From/Thru 15:00 23:00 07:00 10/09/16 00:28 - 10/09/16 06:19 Intake Total 2274 ml 2274 ml Output Total 1000 ml 1000 ml Balance 1274 ml 1274 ml Intake Oral 0 ml 0 ml IV Total 2274 ml 2274 ml Output Urine Total 1000 ml 1000 ml # Voids 3 3 Exam General: Mild distress, mild confusion, well-developed, well-nourished Head: Normocephalic, atraumatic. External ears without defect. Eyes: Nystagmus, difficulty concentrating on a focal point, pupils equal, round , and reactive to light. Anicteric sclerae, moist conjunctivae. Neck: Normal range of motion, no lymphadenopathy noted, extremely tender to palpation Cardiovascular: Regular rate and rhythm with no murmurs, rubs, or gallops appreciated Pulmonary: Clear to auscultation bilaterally with no crackles, wheezes, or rhonchi. Normal respiratory effort with no use of accessory muscles. Abdomen: Bowel tones present. Soft, nontender, nondistended. Extremities: No clubbing, cyanosis, edema Skin: Normal temperature, turgor, and texture; no rash, ulcers, or subcutaneous nodules appreciated. Neurological: Complex neurological symptoms which tend to wax and wane. Patient complained of inability to move the right hand, 10-15 minutes later he had a full mobility. Patient continues to have obvious limb ataxia, nystagmus Psychiatric: Patient appears confused with blunted affect. Oriented to person, but not place or time. IVs and Medications IV Fluids 2200 mL normal saline delivered with IV medications. Medications Reviewed: Medications were reviewed in detail Medications High-risk medications include: Ativan Lab and Diagnostics Result Diagram: 10/09/1664710/09/16647 X-Rays, CTs and MRIs CT Head Interpretation CONCLUSION: No acute intracranial abnormality. This report was transmitted to the emergency room at 10/09/2016 - 1:19:[address] C SPINE: IMPRESSION: No acute fractures or malalignment in the cervical spine. This report was transmitted to the emergency room at 10/09/2016 - 1:23:39 AM PDT. 12-lead ECG Normal sinus rhythm rate of 73 on 10/09/2016 at 0338 Assessment & Plan Abdirahman Streeter is a 41-year-old male with past medical history significant for reported seizure disorder and hydrocephalus status post shunt who presents to the ED following seizures. Admitted for monitoring of seizures and phenytoin toxicity. Phenytoin toxicity, present on admission, active. ED physician discussed case with Dr. Ramirez at [facility] neurology who recommended admitting the patient and observing for seizure-like activity. At this time she does not recommend any additional agent to control seizures unless one is witnessed. If he has a witnessed seizure she would recommend Keppra 2 g IV loading dose. ED physician also discussed case with poison control. Most common symptoms of phenytoin toxicity is nystagmus, lethargy, confusion, and ataxia. No specific treatment for toxicity other than fluids, observation, and waiting. - Patient is unsteady on feet at this time. Patient to stand only when assisted. - No electrolyte or EKG abnormalities. - Serial phenytoin levels. Phenytoin's half life of 7-42 hours. [facility] neurologist suspected that it would take at minimum 5 days to normalize. Although it is not required she would recommend keeping the patient until levels have normalized but at minimum until symptoms resolve. - In-house neurology, Dr. Zambrano suggesting monitoring only until symptoms resolve. Reported seizures, present on admission, active. - Head CT showed no acute intracranial process. - Blood alcohol less than 10. - Ativan 2 mg when necessary seizure activity. - Seizure precautions in place. - No further medications unless there is a witnessed seizure. - No recommendation to complete MRI per [facility] neurology. Posterior neck pain radiating to the head, present on admission, active Likely due to neuromuscular postictal soreness - CT scan negative for sources of infection, fractures - Attempted pain control with IV Tylenol and Toradol in an attempt to avoid an opioids/benzodiazepine combination in this recently overdosed patient, however this unsuccessful at controlling his pain. - Hydrocodone for pain Q6 PRN, stop in the event that patient requires Ativan for seizure control. Tobacco use disorder, present on admission, chronic. - Nicotine patch PRN Disposition: Patient is likely to remain in the hospital for 3-5 days until symptoms resolve or phenytoin levels are within normal limits Pain Evaluation: Adequate Pain Control VTE Prophylaxis: Sub-Q Heparin (Unfractionated) VTE Mechanical Devices: Intermittant Pneumatic CD Resuscitation Status: CPR: Attempt Resuscitation Attending Statement The patient was seen and examined together with Dr. Phillips on 10/09/2016 and I agree with the history, exam and plan as outlined in the note above. . Guillermo Phillips DO Oct 09, 2016 15:35 Abraham Gonzalez MD Oct 09, 2016 18:41
--- NOTE | 2016-10-09 16:02 | NUR ---
Impulsive behavior /pain Patient unsteady with altered balance and stated feeling dizzy even in sitting position. Patient did make several attempts to get out of bed to stand to urinate or to go for a smoke. Patient was educated on non-smoking police in the hospital and on premises and was asked to remain in bed and call for assistance with his toileting- patient appeared to be impulsive in his behavior-new order for nicotine patient was received and patch was placed on patient right upper arm- bed exit alarm on, frequent rounds, family was asked to stay with the patient. Patient complained of neck /back of his head pain during the shift- consulted with attending MD patient was medicated with one time dose of IV Tylenol- patient was NPO at the time and was awaiting a swallow evaluation. Patient stated no improvement of pain and his pain increased from 4-5/10 to 6/10. Consulted with MD patient was given a dose of IV Toradol 30mg. Again patient stated increase of pain to 8/10. Patient remarked that he usually gets this kind of pain after he had a seizure. He denied having any seizure since his admit to ED and no seizures were observed during the shift so far- MD was consulted and aware- no new orders were received at the time, MD to see the patient this afternoon to reassess for pain and for seizures- patient was made aware.
[2016-10-09] MEDS ORDERED: HYDROcodone-APAP 5-325 mg Tablet PO PRN (17:15)
[2016-10-09] MEDS: levETIRAcetam 500 mg Tablet PO SCH (20:42)
[2016-10-09] MEDS: HYDROcodone-APAP 5-325 mg Tablet PO PRN (22:36)
[2016-10-10] MEDS ORDERED: HYDROcodone-APAP 5-325 mg Tablet PO PRN (01:15)
[2016-10-10 03:13] VITALS: BP 112/69; PULSE 73; RESP 17; O2SAT 96
[2016-10-10] MEDS: 0.9% Sodium Chloride 1,000 ML IV SCH ×2 (04:49→11:19)
[2016-10-10] MEDS: HYDROcodone-APAP 5-325 mg Tablet PO PRN ×2 (04:57→11:19)
--- NOTE | 2016-10-10 05:34 | NUR ---
Pain/Mentation/Activity Pt c/o 8/10 neck pain at start of shift, [place] order had been changed to 2 tabs Q8 but pt had only taken last [place] dose about 4 hrs prior. Pt also c/o some nausea, was given sprite per request w/out further complaints. Around that time pt stated he felt "the way he had prior to coming into ED." When asked for more information, pt stated his hands and feet were tingling. Pt appeared uncomfortable and was seen laying his head on the rail and not wanting to speak much. Vitals stable and pt still responding to questions appropriately. MD notified of all this. MD ordered Q6 frequency of [place] to be given right then. Pt stated pain down to 4/10 when reassessed and tolerable. Pt appeared much more comfortable and was able to sleep for some time after that without complaints or new symptoms reported. Pt oriented to self, knows situation and what brought him here, pt asking appropriate questions regarding his care, at first not oriented to month though could state year. For the rest of assessments pt oriented to month as well. Pt using call light appropriately and voicing needs, pt calling when needing to stand to urinate as requested by nursing for safety. Pt only forgot to do this once, bed alarm on for safety as pt is unsteady on his feet and gets dizzy on occasion.
[2016-10-10 05:36] VITALS: PULSE 76
[2016-10-10 07:44] VITALS: PULSE 85; RESP 21; O2SAT 99
[2016-10-10] MEDS: Heparin 5,000 Unit/mL Inj SUBQ SCH (07:55)
[2016-10-10] MEDS: levETIRAcetam 500 mg Tablet PO SCH (07:55)
[2016-10-10 08:03] LABS: Mean Corpuscular Hemoglobin 32.6 pg (27.0-35.0)
[2016-10-10 11:20] VITALS: BP 127/80; PULSE 83; RESP 18; O2SAT 98
--- NOTE | 2016-10-10 15:16 | NUR ---
Pain/activity/ AMA Patient complained neck pain today between 6-8/10- medicated with Vicodin 2tabs PO this morning and pain resolved per patients statement. PT evaluation today- patient tolerated activity well. Patient was able to ambulate and remained steady yon his feet while walking. Patient ambulated in hallways several times after PT evaluation accompanied by staff and tolerated the activity well. At 1340 patient stated that his mother was on her way via ambulance to [facility]: "My mother was diagnosed with bran cancer and she is not doing so well. I have to leave. My family is more important to me than this." Patient asked to see a doctor at the time. MD was made aware and was able to see the patient. Patient was advised against to but decided to leave AMA. Patient appeared to be anxious and fidgeting. Patient had visible tremoring to his arms. Patient was able to answer questions and care on a conversation. He did not appeared to be seizing. He denied having any seizures. Patient was instructed to not to take Dilantin because of his elevated/ toxic Dilantin levels- patient was fully aware pf the danger of Dilantin toxicity. Patient was asked to contact his PCP or to evaluate by different medical facility as soon as possible for Dilantin level and seizure preventing medications. Patient nodded that he understood but proceed o leave. Right ANT IV catheter was removed intact prior to discharge.
--- NOTE | 2016-10-10 16:45 | PCM.DC.MED ---
Discharge Summary Date of Service Oct 10, 2016 Dates of Hospitalization Date of Hospital Admission Oct 09, 2016 at 02:10 Date of Discharge: Oct 10, 2016 Providers: Admitting Physician: Sulma Fitzpatrick DO Primary Care Physician: Melonie Delarosa Attending Physician: Abraham Gonzalez MD Diagnosis at Time of Discharge Diagnosis at Time of Discharge Patient left AMA Procedures XRay, CTs & MRIs CT Head Interpretation CONCLUSION: No acute intracranial abnormality. This report was transmitted to the emergency room at 10/09/2016 - 1:19:[address] C SPINE: IMPRESSION: No acute fractures or malalignment in the cervical spine. This report was transmitted to the emergency room at 10/09/2016 - 1:23:39 AM PDT. ECG 12 Lead Normal sinus rhythm rate of 73 on 10/09/2016 at 0338 Brief History Taken from H&P completed by Dr. Ledezma: Abdirahman Streeter is a 41-year-old male with past medical history significant for reported seizure disorder and hydrocephalus status post shunt who presents to the ED following seizures. Patient was recently seen by Dr. Small in the ED and given phenytoin as he had recently run out of his medications. Today he presents and per the ED physicians history he had been compliant with his medications. At the time of my examination patient had received 6 mg of Ativan and was sedated and responsive to only physical stimuli and family had left the hospital so history was unable to be obtained. The following history is obtained from the ED physician, Dr. Mcpherson's note: Pt is a 41 year old male with a hx of seizures presenting to the ED via EMS after having 3 tonic-clonic seizures today, the first one at 2330, lasting for about 10 minutes each 2-3 minutes apart which were witnessed by his fiance. Associated symptoms include sharp neck pain, ear drainage, shaking and weakness in his legs, nausea, SOB, urinary incontinence, numbness in his tongue, and double vision. His fiance states that these episodes were different than usual, because when she would sit him up he wouldn't stop seizing whereas he usually does, and the LE weakness preceded the seizure. Pt usually gets about 4-5 seizures a month and last saw a neurologist at least 6 years ago. Pt has a hx of alcohol abuse but states that he last had EtOH 4 months ago, besides one beer he had this morning. The pt was seen in the ED 8 days ago for a seizure and was prescribed his regular seizure medication (Dilantin) because he had run out. On presentation to the ED patient's vitals were pulse 88, respiratory rate 19, blood pressure 135/94, pulse oximetry 97% on room air. Patient immediately began to have shaking in his legs that he stated typically preceded his seizures and consequently he was given Ativan 2 mg. He was then sent to CT but continued to shake and was given additional dose of Ativan. CT head and neck obtained showed no acute intracranial process. Per ED physician patient and family continue to insist that he has a shunt present but this was not confirmed by imaging or physical exam. Initial labs revealed unremarkable CBC and CMP but patient did have a significantly elevated phenytoin level of 50.8. ED physician spoke both with poison control and Dr. Ramirez of [facility] neurology. Recommendations were to admit patient and observe for any further seizure activity or side effects from phenytoin toxicity. Hospital Course Abdirahman Streeter is a 41-year-old male with past medical history significant for reported seizure disorder and hydrocephalus status post shunt who presents to the ED following seizures. Admitted for monitoring of seizures and phenytoin toxicity. In the process of medical management, the patient abruptly left AMA, we discussed the risks of leaving the hospital prior to establishing a diagnosis and ensuring that the patient is medically stable, despite this the patient felt the need to leave prior to termination of medical treatment. We have started the patient on Keppra 500 mg twice a day to control his seizures as it appeared that the Dilantin was no longer functioning properly. The plan was to continue to watch his Dilantin levels decrease and increase Keppra as needed for daily seizures, we would have liked to have monitored the patient at this dose of Keppra to ensure that his seizures did not continue, however the patient would not consent to staying in the hospital for further treatment. If seen at another facility in the future we suggest initiation of Keppra as this is likely to be able to control his seizure activity with minimal side effects compared to Dilantin, as his therapeutic window has likely narrowed over the many years of taking this drug. Exam Vital Signs (Last) Date Time Temp Pulse Resp B/P Pulse Ox O2 Delivery O2 Flow Rate FiO2 10/10/16 11:20 37.1 83 18 127/80 98 Room Air 10/09/16 02:00 2 Test 10/09/16 00:16 10/09/16 00:30 10/09/16 05:40 10/09/16 06:48 Hold Purple Top Tube Received (Received) Prothrombin Time 10.0sec (8.1-12.5) Prothromb Time International Ratio 0.94ratio Activated Partial Thromboplast Time 28.3sec (22.8-33.0) Hold Blue Top Tube Received (Received) Magnesium Level 1.9mg/dL (1.6-2.6) Hold [place] Top Tube Received (Received) Alcohols < 10mg/dL (0-10) Urine Color Yellow (YELLOW) Urine Appearance Clear (CLEAR,HAZY) Urine pH 8.0 (5.0-8.0) Urine Specific [place] 1.007 (1.003-1.035) Urine Protein Negativemg/dL (NEG,TRACE) Urine Glucose (UA) Negativemg/dL (NEGATIVE) Urine Ketones Negativemg/dL (NEGATIVE) Urine Occult Blood Negative (NEGATIVE) Urine Nitrite Negative (NEGATIVE) Urine Bilirubin Negative (NEGATIVE) Urine Urobilinogen Normalmg/dL (NORMAL) Urine Leukocyte Esterase Negative (NEGATIVE) Urine RBC 0-2/hpf (0-2) Urine WBC 0-5/hpf (0-5) Urine Epithelial Cells None/hpf (NONE-MOD) Urine Crystals None seen (NONE SEEN) Urine Bacteria None/hpf (NONE-FEW) Urine Hyaline Casts None/lpf (NONE) Urine Granular Casts None seen (NONE SEEN) Urine Waxy Casts None seen (NONE SEEN) Urine Red Blood Cell Casts None seen (NONE SEEN) Urine White Blood Cell Casts None seen (NONE SEEN) Urine Mucus None seen (None Seen) Urine Trichomonas None seen (NONE SEEN) Urine Yeast None (NONE SEEN) Urinalysis Comment None Urine Culture Reflexed Not indicated Urine Opiates Screen Negative Urine Methadone Screen Negative Urine Barbiturates Screen Negative Urine Amphetamines Screen Negative Urine Benzodiazepines Screen Negative Urine Cocaine Metabolite Screen Negative Urine Cannabinoids Screen Negative Hemoglobin A1c 5.0% (4.8-5.6) Neutrophils (%) (Auto) 57.3% (40-74) Lymphocytes (%) (Auto) 30.9% (14-46) Monocytes (%) (Auto) 8.8% (4-12) Eosinophils (%) (Auto) 2.5% (0-5) Basophils (%) (Auto) 0.5% (0-3) Test 10/10/16 07:33 White Blood Count 5.1th/mm3 (3.8-10.1) Red Blood Count 4.26mil/mm3 (4.40-5.80) Hemoglobin 13.9g/dL (13.8-17.2) Hematocrit 39.6% (41.0-50.0) Mean Corpuscular Volume 93.0fL (81-100) Mean Corpuscular Hemoglobin 32.6pg (27.0-35.0) Mean Corpuscular Hemoglobin Concent 35.1% (32.0-37.0) Red Cell Distribution Width 12.1% (12.3-15.4) Platelet Count 153bil/L (150-400) Sodium Level 139mEq/L (134-144) Potassium Level 3.9mEq/L (3.5-5.2) Chloride Level 105mEq/L (97-108) Carbon Dioxide Level 23mmol/L (18-29) Blood Urea Nitrogen 6mg/dL (6-24) Creatinine 0.67mg/dL (0.76-1.27) Estimat Glomerular Filtration Rate 138mL/min (>59) Glucose Level 92mg/dL (60-99) Calcium Level 8.5mg/dL (8.5-10.1) Total Bilirubin 0.2mg/dL (0.0-1.2) Aspartate Amino Transf (AST/SGOT) 12U/L (0-50) Alanine Aminotransferase (ALT/SGPT) 14U/L (0-44) Alkaline Phosphatase 69U/L (25-150) Total Protein 5.8g/dL (6.4-8.4) Albumin 3.5g/dL (3.4-5.0) Phenytoin (Dilantin) Level 36.3uG/mL (10.0-20.0) Discharge Medications Discharge Medications Phenytoin Sodium ER (Dilantin) 100 Mg Capsule 300 MG PO BID Prescribed by: SATHYA SMALL MD Attending Statement The patient was seen and examined together with Dr. Phillips on 10/10/2016 and I agree with the history, exam and plan as outlined in the note above. . copies to: Melonie Delarosa Adam J DO Oct 10, 2016 16:45 Abraham Gonzalez MD Oct 10, 2016 17:08
--- NOTE | 2016-10-10 17:48 | NUR ---
Social Work Note: AMA Data& Assessment: Per RN, pt left AMA. CARTRIDGE ASSEMBLING MACHINE ADJUSTER was not able to complete initial assessment prior to pt leaving AMA. No other needs identified. Plan: Pt left AMA. CLAUDIA Silvestre
== END 2016-10-10 14:14 | disposition left against medical advice (07) | DRG 918 ==
LOC: SED 00:08 → PCC 02:10 → CCU 02:34 → PCC 08:27
PROVIDERS: ADMIT Internal Medicine; ATTEND Internal Medicine
DX: T42.0X1A Poisoning by hydantoin derivatives, accidental (unintentional), initial encounter (principal); G91.9 Hydrocephalus, unspecified; R56.9 Unspecified convulsions; Z91.19 Patient's noncompliance with other medical treatment and regimen; F17.210 Nicotine dependence, cigarettes, uncomplicated; M54.2 Cervicalgia

== ENCOUNTER 2016-10-11 18:38 | Inpatient (IN) | payer OTHER ==
[~2016-10-11] VITALS: Ht 185.4 cm; Wt 77.2 kg
[~2016-10-11 18:38] MED LIST changes: -HYDR-4003 PO; -SULF1TAB7 PO
[2016-10-11 18:52] VITALS: BP 114/78; PULSE 94; RESP 16; O2SAT 99
--- NOTE | 2016-10-11 21:05 | ED.REPORT ---
HPI-General Illness Date of Service Oct 11, 2016 ED Provider: Reagan Quinn MD Patient is a 41 year old male with a history of seizures who presents to the ED for three seizures onset this morning. He describes them as typical of his previous seizures, tonic clonic and lasting several minutes. His fiance states his seizures usually last 5 minutes and he is confused and tired afterwards. The first seizure started this morning, and lasted five minutes. The next seizure started 30 minutes after his first and lasted the same time, and he had another seizure 10 minutes after that. He was admitted to the hospital on for tonic-clonic seizures, and left the hospital AMA. He hasn't taken any seizure medication since he left the hospital because he states the "doctor wouldn't give him any medication since he left AMA". Associated symptoms include feeling lightheaded and fatigued and confused afterwards (improving), and bowel incontinence during one of his seizures that is typical of previous seizures. Denies any notable alleviating or exacerbating factors. He denies chest pain, SOB, fever, chills, abdominal pain, focal weakness, hematochezia, hematemesis, or any other symptoms. According to his discharge summary from 10/10/16, Dr. Phillips states that he was started on Keppra 500 mg twice a day to control his seizures as it appeared the Dilantin was not longer functioning properly. The plan was to continue to watch his Dilantin levels decrease and increase Keppra as needed for daily seizures, they would have liked to have monitored the patient at this dose of Keppra to ensure that his seizures did not continue, however the patient would not consent to staying in the hospital for further treatment.They suggested initiation of Keppra as likely to control his seizure activity with minimal side effects compared to Dilantin. Nursing Notes Stated Complaint: SEIZURES,OVERDOSE ON MEDICATION Chief Complaint: Seizure Nursing Notes Reviewed: Yes Allergies: Coded Allergies: No Known Allergies (Unverified , 10/09/16) Scheduled Phenytoin Sodium ER (Dilantin) 100 Mg Capsule 300 MG PO BID General Time Seen by MD: 19:11 Chief Complaint Seizure Hx Obtained From: Patient, Spouse Arrived By: Walk-in Sudden in Onset?: Yes Onset Occurred: 9 - 12 hours ago Context of Onset: Seizure Associated with: Reports: Dizziness Additional Notes: Difficulty walking and bowel incontinence during one of his seizures that is normal Context Related History: Reports Seizure disorder Recent Healthcare: Recent doctor visit, Recent hospitalization Similar Sx Previous: Yes Past Medical History Past Medical History seizures Past Surgical History Pt reports that he has a brain shunt to drain hydrocephalus but there is no shunt present on CT Reports: Appendectomy Smoking History Current Every Day Smoker Social History recently moved to [facility] from [place] 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 Other Social History: Good social support, Ambulatory Status Independent Review of Systems Bowel incontinence during one of his seizures that is normal Difficulty walking Full Review of Systems Constitutional: Denies: Chills, Fever Eyes: Denies: Blurred bilateral Respiratory: Denies: Shortness of breath Cardiovascular: Denies: Chest pain GI: Denies: Abdominal pain, Hematemesis, Hematochezia Male: Denies Dysuria Musculoskeletal: Denies: Back pain Skin: Denies Rash Allergy / Immune: Denies: Itching Neurologic: Reports: Dizziness, Seizure, Denies: Focal weakness Complete sys rev & neg: except as marked. Physical Exam Nursing note and vitals reviewed. Constitutional: Well-developed, well-nourished. Not diaphoretic. Head: Normocephalic and atraumatic. Mouth/Throat: Oropharynx is clear and moist. No oropharyngeal exudate. Eyes: EOM are normal. Pupils are equal, round, and reactive to light. Neck: Supple, no tracheal deviation. Cardiovascular: Normal rate, regular rhythm. Equal and intact distal pulses throughout. Pulmonary/Chest: Effort normal and breath sounds normal. No respiratory distress. Abdominal: Soft. No distension. There is no tenderness, rebound, or guarding. Bowel sounds present. Musculoskeletal: Range of motion grossly intact, moving all extremities. No edema or tenderness appreciated. Neurological: AOx3. Grossly nonfocal exam. Strength and sensation intact and equal to bilateral upper and lower extremities. Normal finger to nose testing. Skin: Warm and dry, no rashes or pallor appreciated. Psychiatric: Appropriate mood and affect. Behavior appears normal. Vital Signs Vital Signs Date Time Temp Pulse Resp B/P Pulse Ox O2 Delivery O2 Flow Rate FiO2 10/11/16 22:46 85 18 128/81 98 Room Air 10/11/16 18:52 37.0 94 16 114/78 99 Room Air Initial VS: Reviewed Interpretation & Diagnostics Lab Results Interpretation Result Diagram: 10/11/16192910/11/161929 Test 10/11/16 19:30 10/12/16 00:25 White Blood Count 8.0th/mm3 (3.8-10.1) Red Blood Count 4.52mil/mm3 (4.40-5.80) Hemoglobin 14.6g/dL (13.8-17.2) Hematocrit 41.9% (41.0-50.0) Mean Corpuscular Volume 92.7fL (81-100) Mean Corpuscular Hemoglobin 32.3pg (27.0-35.0) Mean Corpuscular Hemoglobin Concent 34.8% (32.0-37.0) Red Cell Distribution Width 12.4% (12.3-15.4) Platelet Count 197bil/L (150-400) Hold Purple Top Tube Received (Received) Hold Blue Top Tube Received (Received) Sodium Level 141mEq/L (134-144) Potassium Level 4.0mEq/L (3.5-5.2) Chloride Level 103mEq/L (97-108) Carbon Dioxide Level 23mmol/L (18-29) Blood Urea Nitrogen 13mg/dL (6-24) Creatinine 0.81mg/dL (0.76-1.27) Estimat Glomerular Filtration Rate 111mL/min (>59) Glucose Level 89mg/dL (60-99) Calcium Level 9.3mg/dL (8.5-10.1) Total Bilirubin 0.2mg/dL (0.0-1.2) Aspartate Amino Transf (AST/SGOT) 18U/L (0-50) Alanine Aminotransferase (ALT/SGPT) 21U/L (0-44) Alkaline Phosphatase 79U/L (25-150) Total Protein 6.8g/dL (6.4-8.4) Albumin 4.1g/dL (3.4-5.0) Hold Red Top Tube Received (Received) Hold [place] Top Tube Received (Received) Hold Harvey Top Tube Received (Received) Salicylates Level 3.0ug/mL (30-250) Acetaminophen Level 15.0ug/mL Rx (10-25) Phenytoin (Dilantin) Level 26.2uG/mL (10.0-20.0) Alcohols 91mg/dL (0-10) Hold Urine Received (Received) ECG Interpretation ECG Interpretation: Sinus rhythm, rate 93 Time: 19:12 Interpreted by: ED physician CT Head Interpretation IMPRESSION: No definite acute intracranial abnormalities. Chronic lacunar infarct versus prominent perivascular space left basal ganglia. Minimal volume loss and low attenuation of the deep white matter. Study: Head CT no contrast Interpretation / Wet Read by: Interpret - Radiologist Re-Eval/Medical Decision Med Decision/Clinical Course In summary, 41-year-old male with a history of reported seizure disorder presenting to the ED for evaluation of multiple seizures earlier today consistent with previous seizures. As above, patient left AMA yesterday without receiving full treatment. Differential for his seizures include medication noncompliance, metabolic abnormality, acute intracranial abnormality , acute exacerbation of underlying seizure disorder, etc. He states that he has not been taking any of his medication. CT of the patient's head negative for any acute intracranial abnormalities, however there is a chronic lacunar infarct versus prominent perivascular space in the left basal ganglia. Laboratory studies here notable for a blood alcohol of 91 (patient states that he had 2 beers earlier today), phenytoin level of 26.2; CBC and CMP grossly within normal limits. EKG demonstrates sinus rhythm with no acute ischemic changes or abnormal intervals. Urine drug screen pending. Given the above, plan admission for further management and evaluation of still resolving phenytoin toxicity and multiple seizures. Patient agreeable to the plan as stated, no further questions. Source of Hx: Old records Time of Eval: 23:15 Re-Evaluation/Progress Note: Discussed plan for admission. Pt understands and agrees with plan. All questions addressed. Consultation : Referral / Consult Name: Sulma Fitzpatrick DO Consulted With: Hospitalist Call Returned at: 00:07 Range Master: Will see patient, Agrees with plan, Accepts admit Note: Discussed pt's case with hospitalist, Dr. Fitzpatrick. She accepts admission. Counseled Regarding: Diagnosis, Lab results, Need for admission Discharge & Departure Primary Impression: Seizure Additional Impression: Phenytoin toxicity Encounter type: subsequent encounter Injury intent: undetermined intent Qualified Code: T42.0X4D - Poisoning by hydantoin derivatives, undetermined, subsequent encounter Disposition: ADMITTED TO HOSPITAL Discharge Condition All VS Reviewed: Yes Condition: Stable Referrals: Melonie Delarosa (PCP) Scribe Attestation Portions of this note were transcribed by Megan Forte. I, Dr. Quinn, personally performed the history, physical exam and medical decision-making; I reviewed and confirmed the accuracy of the information in the transcribed note. copies to: Melonie Delarosa William B MD Oct 11, 2016 21:04 Megan Forte Oct 11, 2016 21:11
[2016-10-11] MEDS ORDERED: 0.9% Sodium Chloride 1,000 ML IV ONE (21:45)
[2016-10-11 21:54] LABS: Mean Corpuscular Hemoglobin 32.3 pg (27.0-35.0); Mean Corpuscular Volume 92.7 fL (81-100)
[2016-10-11 22:46] VITALS: BP 128/81; PULSE 85; RESP 18; O2SAT 98
[2016-10-12] VITALS (10 sets, daily range): BP systolic 103–137; BP diastolic 66–100; PULSE 68–96; RESP 18; O2SAT 93–97
[2016-10-12] MEDS ORDERED: Alum-Mag Hydrox-Simeth 30 mL Suspension PO PRN (03:25)
[2016-10-12] MEDS ORDERED: Ondansetron 2 mg/mL 2 mL Inj IVPUSH PRN (03:25)
[2016-10-12] MEDS ORDERED: Polyethylene Glycol (PEG) 17 Gm Powder PO PRN (03:25)
--- NOTE | 2016-10-12 03:51 | NUR ---
Admission Pt alert and oriented x 3 upon arrival to [facility] via gurney at 0100. Pt was able to ambulate to bed with a steady gait. Denies shortness of breath, chest pain/pressure and nausea. Pt oriented to room, bed controls, television, call light and lights. Pt assessed by Resident and new orders received. Seizure pads in place. Pt c/o of LT armpit pain with white "pustule-like" bumps rating 12/10 on px scale. RN to provide pain management once pharmacy verifies medications. care continues.
--- NOTE | 2016-10-12 03:54 | PCM.HPMED ---
Subjective Date of Service Oct 12, 2016 Primary Provider: Admitting Physician: Sulma Fitzpatrick DO Primary Care Physician: Melonie Delarosa Attending Physician: Sulma Fitzpatrick DO Chief Complaint: Seizures History of Present Illness: Abdirahman is a 41-year-old male with a history of seizures that was recently admitted for a Dilantin overdose, but left AMA before we could get his newly prescribed Keppra to therapeutic levels. He presents today after having several seizures which were witnessed by his fiance. He complains of headache and weakness on his right side that has been chronic. He denies chest pain, shortness of breath. Review of Systems: Review of Systems: A comprehensive review of systems was conducted with the patient and found to be negative except as above in the History of Present Illness. Allergies Coded Allergies: No Known Allergies (Unverified , 10/09/16) PMH Tonic-clonic seizures Depression Anxiety Surgical History According to patient he has had an intracerebral shunt for hydrocephaly, though evidence of a stent is not seen on cranial imaging Social History Hx Alcohol Use: Yes Alcoholic Drinks Per Day: once per Hx Substance Use: Yes (Marijuana twice a week) Hx Tobacco Use: Yes Smoking Status: Current Every Day Smoker Exam Vital Signs Vital Sign - Last Date Time Temp Pulse Resp B/P Pulse Ox O2 Delivery O2 Flow Rate FiO2 10/12/16 01:54 36.6 78 18 137/100 97 Room Air Intake and Output 10/11/16 10/11/16 10/12/16 Cumulative From/Thru 15:00 23:00 07:00 10/11/16 18:52 - 10/12/16 02:20 Intake Total 1000 ml 1000 ml Balance 1000 ml 1000 ml Intake Oral 0 ml 0 ml IV Total 1000 ml 1000 ml Exam General: No acute distress, well-developed, well-nourished, appropriately interactive HEENT: Normocephalic, atraumatic. External ears without defect. Pupils equal, round, and reactive to light and accommodation. Anicteric sclerae, moist conjunctivae, and no lid lag. Oropharynx free of erythema and cobble stoning with moist mucosa. Neck: Supple with full range of motion. No jugular venous distension. No bruits. No lymphadenopathy or thyromegaly. axilarry tender erythematous LNs with pustule overlying it Cardiovascular: Regular rate and rhythm with no murmurs, rubs, or gallops appreciated Pulmonary: Clear to auscultation bilaterally with no crackles, wheezes, or rhonchi. Normal respiratory effort with no use of accessory muscles. Abdomen: Bowel tones present. Soft, nontender, nondistended. No hepatosplenomegaly or masses appreciated. Extremities: No clubbing, cyanosis, edema, or lymphadenopathy appreciated. Skin: Several small, domes under left axilla, tender to palpation with mild surrounding erythema Normal temperature, turgor, and texture; no rash, ulcers, or subcutaneous nodules appreciated. Neurological: Decreased sensation of right face, right arm, and right lower extremity. Reduced strength of right lower extremity. Psychiatric: Normal mood and affect. Alert and oriented to person, place, and time. Lab and Diagnostics Result Diagram: 10/11/16192910/11/161929 X-Rays, CTs and MRIs CT Head Interpretation IMPRESSION: No definite acute intracranial abnormalities. Chronic lacunar infarct versus prominent perivascular space left basal ganglia. Minimal volume loss and low attenuation of the deep white matter. Study: Head CT no contrast Interpretation / Wet Read by: Interpret - Radiologist 12-lead ECG Normal sinus rhythm with a rate of 93 bpm Assessment & Plan In summary, Abdirahman is a 41-year-old male with a history of seizures since 2004, with a stated history of interest cerebral shunt for hydrocephaly, though stent has not been visible on recent cranial imaging. He was recently admitted for Dilantin overdose and left AMA on 10/10. He has returned after stating he had several seizures today witnessed by his fiance. #. Tonic-clonic seizures, active, present on admission -Start oral Keppra 500 mg twice a day, with loading dose of 2000 mg -Monitor neurologic status every 6 hours #. Dilantin overdose, resolving, present on admission -Levels remain supratherapeutic despite not having taken this medication in several days -No treatment indicated at this time # left axillary boils -augmentin po -lidocain gel -percocet Patient Status: Patient is admitted under observation status with expected length of stay less than 2 midnights due to severity of presenting symptoms, risk of adverse event, and complexity of treatment plan. Eliezer Malone DO Oct 12, 2016 03:54 Kishan Parnell MD Oct 12, 2016 16:30
[2016-10-12] MEDS: HYDROcodone-APAP 5-325 mg Tablet PO PRN ×3 (05:00→13:03)
[2016-10-12] MEDS: levETIRAcetam 500 mg Tablet PO SCH ×3 (05:30→20:52)
--- NOTE | 2016-10-12 08:27 | DRSVH ---
PROCEDURE: CT BRAIN WITHOUT CONTRAST ([id number]) INDICATIONS: seizure x 3 TECHNIQUE: Noncontrast 4.5 mm thick angled axial sections acquired from the foramen magnum to the vertex, with c oronal reformats. COMPARISON: [facility], CT, CT BRAIN WO CON, 10/09/2016, 0:59. FINDINGS: Image quality: Excellent. CSF spaces: Basal cisterns are patent. No extra-axial fluid collections. Ventricles are normal in size and shape. Brain: No intracranial hemorrhage, mass, or mass effect. Steele-white matter interface is preserved. A small left choroidal fissure cyst is redemonstrated. Skull and face: The calvarium appears intact. Mildly displaced nasal bone fractures are partially vi sualized. Sinuses: Visualized sinuses and mastoids are clear. IMPRESSION: 1. No acute intracranial abnormality. 2. Previously identified nasal bone fractures partially visualized. Dictated by: Homero Phan M.D. on 10/12/2016 at 8:22 Approved by: Homero Phan M.D. on 10/12/2016 at 8:25
--- NOTE | 2016-10-12 08:41 | NUR ---
LOC / CIWA At 0710 patient rouses to gentle tactile stimuli, able to answer 1-2 yes no questions. Responds "fine" when asked how he is feeling. Can not answer where he is or his name. HR 70, sats 98% on 2L mask. No signs distress. Unable to complete CIWA assessment. 0815 patient similarity rouses to light touch and reports he is "OK" but can not answer questions to assess his orientation. Sats remain in high 90s and HR 76. FSBG is 128. Patient appears to be resting comfortably. Seizure pads in place, bed low and locked, bed alarm on for safety. Frequent rounding in place by GUERO and JELENA. Addendum: 10/12/16 at 1224 by BORIS MARQUEZ RN PREVIOUS NOTE ENTERED IN ERROR ON WRONG PATIENT
[2016-10-12] MEDS ORDERED: Lidocaine 2% 5 mL Topical Jelly TOPICAL ONE (10:25)
[2016-10-12] MEDS: Amoxicillin-Clav 875-125 mg Tablet PO SCH ×2 (10:50→20:52)
--- NOTE | 2016-10-12 12:24 | NUR ---
Previous not entered in error, disregard Entered on wrong patient
[2016-10-12] MEDS: oxyCODONE-Acetamin 10-325 mg Tablet PO PRN ×2 (15:33→20:53)
--- NOTE | 2016-10-12 16:40 | NUR ---
Pain / skin Patient has red rash-like area in left axilla with blister-like bumps. MD has seen and assessed. Patient C/O 10/10 pain in axillary area. PRN medications given with little effect. Obtained one time order for topical 2% lidocaine gel; application did little for patient. Trial of heat pack had little effect. Offered ice pack that patient declined. Contacted MD for change in patient's pain medications. New order for 10/325 Percocet reduces patient's pain level from 10/10 to 7-8/10. Patient resting in bed, eyes closed, RR regular, no signs distress. Bed low and locked, bed alarm on for safety, care and frequent rounding ongoing.
[2016-10-13] VITALS (8 sets, daily range): BP systolic 117–135; BP diastolic 75–85; PULSE 81–90; RESP 16; O2SAT 94–96
[2016-10-13] MEDS: oxyCODONE-Acetamin 10-325 mg Tablet PO PRN ×6 (00:44→21:29)
--- NOTE | 2016-10-13 05:00 | NUR ---
NOC/Pain Pt reports of pain on his left armpit. Upon assessment, pt have a pustule like bump. mildly swollen and reports of 10/10 pain. Percocet administered PRN. Denies chest pain, sob, n/v or abd discomfort. HS meds keppra and Amoxicillin administered as scheduled. Hourly rounding.
[2016-10-13] MEDS: Amoxicillin-Clav 875-125 mg Tablet PO SCH (08:07)
[2016-10-13] MEDS: levETIRAcetam 500 mg Tablet PO SCH ×2 (08:09→20:25)
[2016-10-13] MEDS: Vancomycin Dose per Pharmacist XX SCH (08:30)
[2016-10-13] MEDS ORDERED: Vancomycin Inj 1,500 MG in 0.9% Sodium Chloride 500 ML IV ONE (08:30)
[2016-10-13] MEDS ORDERED: 0.9% Sodium Chloride 250 ML ONE (09:03)
[2016-10-13 09:59] LABS: BASOPHILS % (AUTO) 0.3 % (0-3); EOSINOPHILS % (AUTO) 1.9 % (0-5); MONOCYTES % (AUTO) 7.2 % (4-12); Mean Corpuscular Hemoglobin 32.3 pg (27.0-35.0); NEUTROPHILS % (AUTO) 76.1 % (40-74); Platelet Count 176 bil/L (150-400)
--- NOTE | 2016-10-13 10:14 | NUR ---
Joieo reaction Pt reacted to Vancomycin, with red man syndrome. Notified MD, received order for Benadryl IV and reduced rate to 125mls/hr vs 333mls/hr. Will continue to monitor. Addendum: 10/13/16 at 1115 by JEFFRY CARLSON RN s/sx of red man syndrome resolved with Benadryl and reduced rate of infusion of Vancomycin.
[2016-10-13] MEDS: HYDROmorphone 1 mg/mL Inj IVPUSH PRN ×4 (10:55→23:17)
--- NOTE | 2016-10-13 12:58 | PCM.PNMED ---
Subjective Date of Service Oct 13, 2016 Subjective Patient has worsening of left axillary painful swelling. No seizures. He had I &D of left axilla abscess twice in the last 1 month in ED. He was treated with bactrim oral antibiotics.culture from prior I&D shows MRSA sensitive to Bactrim. Exam Vital Signs Vital Sign - Last Date Time Temp Pulse Resp B/P Pulse Ox O2 Delivery O2 Flow Rate FiO2 10/13/16 10:41 87 10/13/16 09:08 36.9 16 126/80 94 Room Air Intake and Output 10/12/16 10/12/16 10/13/16 Cumulative From/Thru 15:00 23:00 07:00 10/11/16 18:52 - 10/13/16 06:42 Intake Total 1336 ml 695 ml 3031 ml Output Total 500 ml 625 ml 1125 ml Balance 836 ml 70 ml 1906 ml Intake Oral 1336 ml 675 ml 2011 ml IV Total 20 ml 1020 ml Output Urine Total 500 ml 625 ml 1125 ml # Voids 2 4 # Bowel Movements 1 0 1 Exam General: No acute distress, well-developed, well-nourished, appropriately interactive HEENT: Normocephalic, atraumatic. External ears without defect. Pupils equal, round, and reactive to light and accommodation. Anicteric sclerae, moist conjunctivae, and no lid lag. Oropharynx free of erythema and cobble stoning with moist mucosa. Neck: Supple with full range of motion. No jugular venous distension. No bruits. No lymphadenopathy or thyromegaly. axillarry tender erythematous LNs with pustule overlying it Cardiovascular: Regular rate and rhythm with no murmurs, rubs, or gallops appreciated Pulmonary: Clear to auscultation bilaterally with no crackles, wheezes, or rhonchi. Normal respiratory effort with no use of accessory muscles. Abdomen: Bowel tones present. Soft, nontender, nondistended. No hepatosplenomegaly or masses appreciated. Extremities: No clubbing, cyanosis, edema, or lymphadenopathy appreciated. Skin: Several small, domes under left axilla, tender to palpation with mild surrounding erythema Normal temperature, turgor, and texture; no rash, ulcers, or subcutaneous nodules appreciated. Neurological: Decreased sensation of right face, right arm, and right lower extremity. Reduced strength of right lower extremity. Psychiatric: Normal mood and affect. Alert and oriented to person, place, and time. IVs and Medications Medications Reviewed: Medications were reviewed in detail Lab and Diagnostics Result Diagram: 10/13/1692910/13/16929 X-Rays, CTs and MRIs CT Head Interpretation IMPRESSION: No definite acute intracranial abnormalities. Chronic lacunar infarct versus prominent perivascular space left basal ganglia. Minimal volume loss and low attenuation of the deep white matter. Study: Head CT no contrast Interpretation / Wet Read by: Interpret - Radiologist 12-lead ECG Normal sinus rhythm with a rate of 93 bpm Assessment & Plan In summary, Abdirahman is a 41-year-old male with a history of seizures since 2004, with a stated history of interest cerebral shunt for hydrocephaly, though stent has not been visible on recent cranial imaging. He was recently admitted for Dilantin overdose and left AMA on 10/10. He has returned after stating he had several seizures today witnessed by his fiance. # left axillary recurrent follicular MRSA pyoderma -He had I&D of left axilla abscess twice in the last 1 month in ED. He was treated with bactrim oral antibiotics.culture from prior I&D shows MRSA sensitive to Bactrim. -vancomycin started -lidocain gel -pain control with dilaudid -surgery Dr Estevez and ID Dr Oden consulted -will HIV per Dr Oden rec #. Tonic-clonic seizures, active, present on admission -Patient had seizures while he had supratherapeutic Dilantin level. Breakthrough seizure due to Dilantin failure despite toxic level versus seizure due to Dilantin toxicity. Dilantin needs to be changed either ways .dilantin level subtherapeutic now -Started oral Keppra 500 mg twice a day, with loading dose of 2000 mg. -Monitor neurologic status every 6 hours #. Dilantin overdose, resolving, present on admission -Levels were supratherapeutic on admission despite not having taken this medication in several days -No treatment indicated at this time Patient Status: Patient is admitted under observation status with expected length of stay less than 2 midnights due to severity of presenting symptoms, risk of adverse event, and complexity of treatment plan. discharge in 2-3 days Kishan Parnell MD Oct 13, 2016 12:58
--- NOTE | 2016-10-13 14:26 | CONS ---
[address] [address] CONSULTATION REPORT PATIENT: VERN MELLO : 1975 MR#: [id number] ADMIT: 10/12/2016 JOB ID: [id number] DATE OF SERVICE: 10/13/2016 CHIEF COMPLAINT: Left axillary pain. HISTORY OF PRESENT ILLNESS: The patient is a 41-year-old man who was admitted to the hospitalist service for an unrelated issue which is seizures. He was recently admitted for a Dilantin overdose and was switched to Keppra, but left AMA, without being maintained on a therapeutic dose. He presented back to the emergency department with several witnessed seizures. The reason for consultation today is left axillary pain. He was seen in the emergency department several times including August 23, August 27, September 08, for left axillary abscess. He underwent incision and drainage with packing, which grew out MRSA. He states that he has had increasing pain and recurrent pointing lesions in the left axilla. Today, he describes his pain as 10/10. There is a small amount of purulent drainage spontaneously. He denies fevers or chills. He has no history of injury to the area, no bug bites, no shaving, no drug injection. He has not had trouble on the right side, in the groin, or elsewhere on his body. PAST MEDICAL HISTORY: Seizure disorder, tobacco abuse, depression, anxiety. 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 MEDICATIONS: Dilaudid, Percocet, Lovenox, Keppra, lorazepam, vancomycin, Augmentin p.o. ALLERGIES: No known drug allergies SOCIAL HISTORY: He smokes cigarettes. He uses marijuana. Denies other illicit drug use. He drinks one alcoholic beverage per day. FAMILY HISTORY: Noncontributory, negative for seizure disorder. REVIEW OF SYSTEMS: A 10-point review of systems is negative except as described in history of present illness. No fevers, no unplanned weight loss. PHYSICAL EXAMINATION: Body mass 22.5, temperature 36.9, pulse 87, blood pressure 126/80, saturation 94% on room air. General: He is resting in bed, uncomfortable appearing. HEENT: Sclerae are anicteric. Mucous membranes are moist. Neck: No lymphadenopathy. No jugular venous distention. Chest is clear. Heart: Regular rate and rhythm. No murmurs. Extremities: The left axilla has multiple small pustules with surrounding erythema, largest area of erythema measures 2 cm. There are a total of four pustules. They are pointing with spontaneous purulent drainage, but with residual fluctuance, induration. He does not tolerate the slightest amount of manipulation of the left axilla. Right axilla is normal, both groins are normal. LABORATORIES: White count is 8.6, hematocrit 42.8, creatinine 0.79. Glucose 95. Procalcitonin 0.02. ASSESSMENT AND PLAN: A 41-year-old man with folliculitis of the left axilla, previously cultured methicillin-resistant Staphylococcus aureus. He ate part of his solid breakfast this morning, so he is not a candidate for surgical drainage in the operating room anytime soon today. He was given several options for treatment. One option would be to wait until late tonight when the operating room is free for incision and drainage. He was offered incision and drainage at the bedside. He was offered a trip to the operating room tomorrow, potentially with my partner Dr. Goetz, for incision and drainage. He favors incision and drainage in the operating room tomorrow. He will be allowed to eat today. I do recommend continuing to treat him for MRSA and using warm compresses. Smoking cessation was encouraged. In the big picture, he should be treated with mupirocin for MRSA colonization.
--- NOTE | 2016-10-13 16:20 | NUR ---
Social Work-initial assessment/multidisciplinary rounds: data:See initial assessment. Pt is a 41 y/o male who was admitted on 10/12/16 for seizures per H&P. Pt's insurance is [employer] and PCP is Melonie Delarosa MD.Pt's readmission score is 3-high risk. SW met with pt, TRACY Reddy, and soon to be father in law at bedside to discuss discharge planning, SW role explained. Pt and his SO have been homeless for the last two month recently moving here from [place]. [place], but just bought a trailer and are looking for a place to park it.Pt and so confirm SO's father will have a spot for them to place [facility]. Pt does not drive and does not use any DME. Pt has no HH or SNF history. Pt has no terminal makeup operator care insurance or VA benefits. SW discussed DPOA/advanced directive, this has not completed, SW provided them with a copy of the paperwork. Pt and SO declining housing resources at this time. Pt has been up independent in his room. No concerns noted in morning rounds regarding pt's capacity for self care from RN or MD. Pt's So to provide transport home. SW provided them with discharge planning checklist and encouraged them to call with any questions, phone number provided on white board in the room. No MD orders received. No anticipated discharge needs. SW will continue to follow if needs arise. Assessment:Pt who is independent at baseline. Plan:Pt to discharge back to [facility] when medically stable via POV. No anticipated discharge needs. SW will continue to follow if needs arise. CLAUDIA White Addendum: 10/13/16 at 1637 by KARINE MORALES Amended: Links added.
--- NOTE | 2016-10-13 18:43 | NUR ---
Pain Pt c/o pain in left axilla generally 9-10/10, gave PRN Percocet x 3 and Dilaudid x 2, with moderate relief. MD notified, and consulted with surgery, plan is to possible I&D boils in left axilla tomorrow. Pt is very tender and unable to move arm very well without having 10/10 pain. Was instructed to use warm compress, as the area was starting to drain, is helping with the compresses. Will continue to monitor.
[2016-10-14] VITALS (15 sets, daily range): BP systolic 115–132; BP diastolic 70–85; PULSE 85–100; RESP 11–25; O2SAT 90–99
[2016-10-14] MEDS: oxyCODONE-Acetamin 10-325 mg Tablet PO PRN ×6 (01:36→22:02)
[2016-10-14] MEDS: HYDROmorphone 1 mg/mL Inj IVPUSH PRN ×7 (03:27→21:49)
--- NOTE | 2016-10-14 05:02 | NUR ---
NOC/Pain Pt has been complaining of left armpit pain. Controlled with PRN dilaudid and Percocet. Pt's VSS and has afebrile through the night. Has been NPO since midnight for possible I&D surgery. Pt is aware of the plan. Continuing to monitor.
[2016-10-14] MEDS: Vancomycin Dose per Pharmacist XX SCH (07:17)
[2016-10-14] MEDS: levETIRAcetam 500 mg Tablet PO SCH ×2 (07:37→20:10)
[2016-10-14] MEDS ORDERED: Vancomycin Inj 1,500 MG in 0.9% Sodium Chloride 500 ML IV ONE (07:40)
--- NOTE | 2016-10-14 07:47 | PCM.CONPHA ---
Subjective Date of Service: Oct 14, 2016 Vancomycin Reason for Pharmacy Consult: Vancomycin Dosing Assessment/Plan Assessment/Plan Patient is a 41 y.o. male receiving vancomycin for MRSA containing abcess. WBC count is 8 and the patient is afebrile. Patient is 77 kg, 73 inches tall with a SCr of 0.79 mg/dL-- estimated CrCl of > 120 mL/min. Based on patient parameters vancomycin will be loaded with 1500mg then dosed at 1000mg q8h with a target trough of 15-20 mcg/mL. Trough will be drawn prior to the 4th dose on 10/15 @ 0800. Pharmacy will follow daily and adjust as appropriate. Thank you for the consult in the care of this patient. P Abraham Busch Oct 14, 2016 07:47
[2016-10-14] MEDS ORDERED: fentaNYL-PF 50 mCg/mL 2 mL Inj ONE (08:28)
[2016-10-14] MEDS ORDERED: Ondansetron 2 mg/mL 2 mL Inj ONE (08:28)
[2016-10-14] MEDS ORDERED: Dexamethasone 4 mg/mL Inj ONE (08:28)
[2016-10-14] MEDS ORDERED: Propofol 10,000 mCg/mL 20 mL Inj ONE (08:28)
[2016-10-14] MEDS ORDERED: Ketamine 10 mg/mL 20 mL Inj ONE (08:28)
[2016-10-14] MEDS: Mupirocin 2% 22 Gm Ointment TOPICAL SCH ×2 (09:34→20:11)
--- NOTE | 2016-10-14 10:33 | PCM.PNSURG ---
Subjective Visit Information: Reason for Visit Seizures Surgery/Surgery Date Post-Op Day # Date of Admission: Oct 12, 2016 at 00:46 Hospital Day # Subjective: Stable overnight, left axillary pain. He has been nothing by mouth since midnight. Objective Vital Sign- Last 8 Hours Date Time Temp Pulse Resp B/P Pulse Ox O2 Delivery O2 Flow Rate FiO2 10/14/16 10:11 36.8 90 16 118/77 94 Room Air 10/14/16 09:21 92 10/14/16 05:19 37.0 99 16 126/70 95 Room Air Intake and Output- Last 8 Hour 10/14/16 Cumulative From/Thru 07:00 10/11/16 18:52 - 10/14/16 00:30 Intake Total 4503 ml Output Total 1975 ml Balance 2528 ml Intake Oral 3483 ml IV Total 1020 ml Output Urine Total 1975 ml # Voids 4 # Bowel Movements 1 General: Alert, Oriented X3, Cooperative, No Acute Distress Extremities: Other (3 abscesses are present in the left axilla. They are very tender to palpation.) Result Diagram: 10/13/1692910/13/1630 Assessment & Plan Impression 41-year-old male with abscesses of the left axilla. Problems: Plan Incision and drainage is scheduled for approximately 1 PM today. He will continue to not eat anything until the time of surgery. Jacqueline Goetz MD Oct 14, 2016 10:33
--- NOTE | 2016-10-14 10:37 | CONS ---
[address] [address] CONSULTATION REPORT PATIENT: VERN MELLO : 1975 MR#: [id number] ADMIT: 10/12/2016 JOB ID: [id number] DATE OF SERVICE: 10/14/2016 INFECTIOUS DISEASE CONSULTATION: I thank Dr. Parnell for this consult. REASON FOR CONSULTATION: Recurrent MRSA abscess left axilla, probable hidradenitis suppurativa. HISTORY OF PRESENT ILLNESS: The patient is a 41-year-old gentleman whose past medical history is notable for a possible seizure disorder. He was admitted to this facility roughly a week ago with what was described as new onset seizure disorder complicated by Dilantin toxicity. He was originally seen in the emergency department for possible seizures witnessed by his girlfriend. He was given Dilantin but unfortunately was then admitted with Dilantin toxicity. During that short admission, he was detoxified in terms of his Dilantin toxicity and switched to Keppra. He subsequently signed out AMA only to return with pain, tenderness and swelling in his left axilla. This has occurred on two prior occasions in the last two months and has required incision and drainage on two separate occasions this summer. The patient tells us that he has not had problems with abscesses or infection along the torres and in the axilla or the groin at any time prior to this summer, however, and he is not aware of any formal diagnosis of hidradenitis, of course. At this point, the patient was admitted October 12 with the increasing swelling and tenderness under the left axilla. He has been started on antibiotics which at this point consist only of vancomycin and I briefly discussed this by telephone yesterday with Dr. Parnell. The choice of vancomycin is based on the fact that two months ago during this first episode of this left axillary inflammatory process a culture yielded MRSA which was resistant to clinda but sensitive to vanco. The patient tells us today he has no fevers, chills, sweats and really no constitutional symptoms. He has no sore throat, cough, nausea, vomiting, and has not suffered any more of his seizure like events. PAST MEDICAL HISTORY: 1. Possible seizure disorder. 2. Ongoing cigarette smoking. SOCIAL HISTORY: The patient reports that he used to be a heavy drinker and now slowed down considerably drinking only about once a week. He is still a cigarette smoker. Smokes about 1-1/2 packs per day. The patient is currently unemployed/disabled. FAMILY HISTORY: Negative for TB in first and second degree relatives. REVIEW OF SYSTEMS: Was done. The patient has no significant headache, visual complaints, sore throat, cough, shortness of breath, nausea, vomiting, diarrhea, dysuria, or synovitis or joint swelling. Remainder of the review of systems negative. PHYSICAL EXAMINATION: Reveals a relatively healthy-appearing gentleman, no acute distress. BMI is 22. He has been consistently afebrile. Temperature 37 degrees at this time. He has not been febrile throughout his 48 hours or so in the hospital. Pulse 92, respiratory rate 18, blood pressure 126/72, saturating well on room air. He is awake and alert. Head without trauma. No temporal wasting. Eyes without conjunctivitis. Oral cavity without thrush or palatal petechia. Neck: Reasonably supple. Lungs: Clear. Cardiac tones: Regular rate and rhythm without murmur. Abdomen: Soft, nontender. No organomegaly. No ascites. No suprapubic fullness. No evidence of synovitis. No cellulitis. Neurologically, he is intact. His left axilla is the only significant abnormality on physical examination. There are multiple 1-4 cm swollen extremely tender areas which are erythematous and located within the left axilla. These areas are sufficiently tender. The patient almost will not allow them to be palpated or examined. There is confluent cellulitis surrounding these apparent abscesses. There is no other evidence for hidradenitis in other locations. LABORATORIES: Include white count normal at 8600, creatinine 0.79, LFTs completely normal. Blood alcohol level 91 when he was admitted. Dilantin level 9.7, normal 10-20. HIV test has returned and it is negative and I discussed yesterday with Dr. Parnell. In reviewing his cultures from prior admissions, he had MRSA from the abscess I and D two months ago. This was clinda resistant. Otherwise typical susceptibilities. This time we have a negative MRSA from the nares but no other micro is available. IMAGING: There is no imaging from this admission. During his last admission, a CT of the brain showed no acute abnormality. IMPRESSION: This is a 41-year-old gentleman with a significant smoking history who has been evaluated a couple times in the past two weeks for possible seizure disorder and has already suffered Dilantin toxicity from that. The ID admission starts two days ago when he was admitted for left axillary abscesses. His history is consistent with a possible diagnosis of hidradenitis. The main differential diagnosis here would be the possibility that he just had a very severe MRSA infection in his left axilla which has never completely resolved as this will now be his third incision and drainage in the past two months. The choice of antibiotics here is not completely clear as we await today's scheduled incision and drainage with cultures but I think starting with vancomycin is reasonable given that we know it was previously MRSA even though his MRSA screen of the nares is negative at this time. RECOMMENDATIONS: 1. Will continue vanco at this point. 2. Will continue to follow this patient with you and await the culture results. 3. Should the patient have more episodes like this going forward, I think a diagnosis of hidradenitis would be confirmed at that point, and topical therapies such as topical clindamycin as well as intermittent use of doxycycline might be valuable, if in fact, this becomes a recurrent problem for him.
[2016-10-14] MEDS: Dextrose 5% 0.45% NaCl 1,000 ML IV SCH ×2 (10:52→16:31)
--- NOTE | 2016-10-14 13:19 | NUR ---
Off Unit Pt off unit to OR, veterinary technology instructor aware. Addendum: 10/14/16 at 1613 by DREA HUSSEIN RN Pt back on unit from OR. veterinary technology instructor aware.
--- NOTE | 2016-10-14 13:44 | PCM.HPANE ---
Patient Data Surgeon Admitting Provider:Sulma Fitzpatrick DO Attending Provider:Kishan Parnell MD Primary Care Physician:Melonie Delarosa Other Provider: Reason for Visit Seizures Ht/WT & BMI Height (Feet): 6 Height (Inches): 1.00 Weight (Kilograms): 77.200 Body Mass Index 22.56 Allergies Coded Allergies: No Known Allergies (Unverified , 10/09/16) Past Anesthesia History Anesthesia History: Denies:: Anesthesia Reactions Diabetes History Hx Diabetes?: No Current Bedside Blood Glucose: 80 MRSA MRSA: No Medications Active Scripts Phenytoin Sodium ER (Dilantin)100 Mg [id number] Mg PO BID #180 CAPSULE Prov:Felix Small MD 09/30/16 Discontinued Scripts Hydrocodone-Acetaminophen 5-325 mg 1 Each Tablet1 Tablet PO Q4H PRN For Pain # 15 TABLET Ref 0 Prov:Felix Small MD 09/30/16 Hydrocodone-Acetaminophen 5-325 mg 1 Each Tablet1 Tablet PO Q4H PRN For Pain #6 TABLET Prov:Felix Small MD 08/23/16 Sulfamethoxazole/Trimeth 800-160 mg (Bactrim DS)1 Each Tablet1 Tablet PO BID # 14 TABLET Prov:Felix Small MD 08/23/16 History History of ENT Problems?: Yes HEENT History: Positive for:: Sinus Problem (from broken nose) Denies:: Cataracts Dysphagia Glaucoma Denture Type: None Teeth Condition: No Teeth Hx of Heart Problems?: No Cardiovascular History: Denies:: Cardiac Surgery Chest Pain Congestive Heart Failure Edema Hypertension Hx of Respiratory Problem?: Yes Respiratory History: Positive for:: Pneumonia (Dec 2015 ) Denies:: Asthma COPD Chest Surgery Dyspnea Emphysema Hemoptysis Tuberculosis Hx Neurologic Problems?: Yes Neurological History: Positive for:: Dizziness Headaches Seizures (no meds currently/tonic colonic) Denies:: Alzheimer's Disease CVA Dementia Parkinson's Disease Other Neurological Pertinent: No seizures since starting keppra Hx of GI Problems?: No Hx of Problems?: No Genitourinary History: Positive for:: Kidney Stones ("long time ago") Denies:: Urinary Tract Infection Male Hx: Denies:: Prostate Problems Scrotal Mass Testicular Surgery Hx Musculoskeletal Problems?: Yes Musculoskeletal History: Positive for:: Back Injury Musculoskeletal Trauma (facial trauma from fall/ broken nose) Denies:: Joint Replacement Hx of Psycho/Social Problems?: Yes Psycho Social History: Positive for:: Anxiety Hx Depression Suicide Attempt (tried to slit wrist 2016) Denies:: Bipolar Disorder Hx Surgeries?: Yes (Appendectomy "Long time ago.") Hx Any Other Health Problems?: Yes Other History: Positive for:: Hospitalization (10/09 left AMA for seizures) Denies:: Thyroid Disease History Blood Transfusions: Positive for:: Accept Blood Products? Denies:: Blood Transfuse Reaction Blood Transfusions Hx Diabetes: NoBedside Blood Glucose: 80 Hx Alcohol Use: YesAlcoholic Drinks Per Day: once perHx Substance Use: Yes ( Marijuana twice a week) Smoking Status: Current Every Day Smoker Have You Smoked inLast 12 mo: YesApprox How Many Cigarettes/day: 30 Stop/Bang Treated for Sleep Apnea?: No Do You Have a CPAP Machine?: No S-Snoring: Do You Snore Loudly: Yes T-Tired: feel tired, fatigued: No O-Obsered: Observed not breath: No P-Blood Pressure: treated: No B- Body Mass Index > 35 kg/m2: No A- Age over 50: No N- Neck Large Circumference: No G- Gender Male: Yes REBEKAH Total Score: 2 Risk Assessment Category Category 1A: Patient has history of documented sleep apnea, and HAS NOT received any narcotic, sedative or anesthesia administration during this stay. Category 1B: Patient has history of documented sleep apnea, and HAS received any narcotic , sedative or anesthesia administration during this stay Category 2: Patient has SUSPECTED Obstructive Sleep Apnea, and HAS received any narcotic , sedative or anesthesia administration during this stay. Category 3: Patient has SUSPECTED Obstructive Sleep Apnea and HAS NOT received narcotic, sedative or anesthesia administration during this stay. Category 4: Outpatient in Procedural Areas with known sleep apnea or who screen positive for High Risk via the STOP/BANG questionnaire. Exam Exam Vital Signs Vital Signs Date Time Temp Pulse Resp B/P Pulse Ox O2 Delivery O2 Flow Rate FiO2 10/14/16 10:11 36.8 90 16 118/77 94 Room Air 10/14/16 09:21 92 General Appearance: Alert, Oriented X3, Cooperative, No Acute Distress HEENT/AIRWAY: MP 1 Lungs: Normal Air Movement Heart: Regular Rate/Rhythm Meds/Labs/Diagnostics Admission Meds Current Medications Vancomycin HCl/ Sodium Chloride (Vancocin Inj/ Normal Saline) 500 ml @ 333.333 mls/hr OT ONCE IV Last administered on 10/14/16 08:41; Start 10/14/16 at 07:40 ; Stop 10/14/16 at 09:09; Status DC Mupirocin 1 applic 1 applic BID TOPICAL Last administered on 10/14/16 09:34; Start 10/14/16 at 08:30 Dextrose/Sodium Chloride (D5 1/2 Normal Saline) 1,000 ml @ 100 mls/hr Q10H IV Last administered on 10/14/16 10:52; Start 10/14/16 at 08:40 Bedside Blood Glucose: 80 Labs Test 10/11/16 19:30 10/12/16 00:25 10/13/16 09:30 10/13/16 10:45 Hold Purple Top Tube Received (Received) Hold Blue Top Tube Received (Received) Hold Red Top Tube Received (Received) Hold [place] Top Tube Received (Received) Hold [place] Top Tube Received (Received) Salicylates Level 3.0ug/mL (30-250) Acetaminophen Level 15.0ug/mL Rx (10-25) Alcohols 91mg/dL (0-10) Hold Urine Received (Received) White Blood Count 8.6th/mm3 (3.8-10.1) Red Blood Count 4.65mil/mm3 (4.40-5.80) Hemoglobin 15.0g/dL (13.8-17.2) Hematocrit 42.8% (41.0-50.0) Mean Corpuscular Volume 92.0fL (81-100) Mean Corpuscular Hemoglobin 32.3pg (27.0-35.0) Mean Corpuscular Hemoglobin Concent 35.0% (32.0-37.0) Red Cell Distribution Width 12.3% (12.3-15.4) Platelet Count 176bil/L (150-400) Neutrophils (%) (Auto) 76.1% (40-74) Lymphocytes (%) (Auto) 14.3% (14-46) Monocytes (%) (Auto) 7.2% (4-12) Eosinophils (%) (Auto) 1.9% (0-5) Basophils (%) (Auto) 0.3% (0-3) Sodium Level 140mEq/L (134-144) Potassium Level 4.1mEq/L (3.5-5.2) Chloride Level 101mEq/L (97-108) Carbon Dioxide Level 25mmol/L (18-29) Blood Urea Nitrogen 10mg/dL (6-24) Creatinine 0.79mg/dL (0.76-1.27) Estimat Glomerular Filtration Rate 114mL/min (>59) Glucose Level 95mg/dL (60-99) Calcium Level 8.9mg/dL (8.5-10.1) Total Bilirubin 0.3mg/dL (0.0-1.2) Aspartate Amino Transf (AST/SGOT) 14U/L (0-50) Alanine Aminotransferase (ALT/SGPT) 17U/L (0-44) Alkaline Phosphatase 85U/L (25-150) Total Protein 6.5g/dL (6.4-8.4) Albumin 3.9g/dL (3.4-5.0) Procalcitonin 0.02ng/mL (0.00-0.08) Phenytoin (Dilantin) Level 9.7uG/mL (10.0-20.0) HIV (1&2) Ag and Ab, 4th Generation Non reactive (Non Reactive) Plan Impression Patient chart reviewed, patient interviewed and anesthestic plan with risks, benefits, and alternatives discussed, and informed consent obtained. NPO per Anesth. Guidelines: Yes ASA Physical Status: ASA2 Mod Systemic Disease Anesthetic Plan: GA Bene/Risks/Altern/Consents: Yes HP Complete Prior to Induction: Yes Magnus Cheema MD Oct 14, 2016 13:44
[2016-10-14] MEDS ORDERED: Lactated Ringer's 1,000 ML IV ONE (14:00)
[2016-10-14] MEDS ORDERED: Bupivacaine-MPF 0.25% 30 mL Inj INFILTRATE ONE (14:52)
--- NOTE | 2016-10-14 14:52 | PCM.PNMED ---
Subjective Date of Service Oct 14, 2016 Subjective Continues to left axillary painful swelling. Afebrile. No seizure. Exam Vital Signs Vital Sign - Last Date Time Temp Pulse Resp B/P Pulse Ox O2 Delivery O2 Flow Rate FiO2 10/14/16 10:11 36.8 90 16 118/77 94 Room Air Intake and Output 10/13/16 10/13/16 10/14/16 Cumulative From/Thru 15:00 23:00 07:00 10/11/16 18:52 - 10/14/16 00:30 Intake Total 1472 ml 4503 ml Output Total 850 ml 1975 ml Balance 622 ml 2528 ml Intake Oral 1472 ml 3483 ml IV Total 1020 ml Output Urine Total 850 ml 1975 ml # Voids 4 # Bowel Movements 0 1 Exam General: No acute distress, well-developed, well-nourished, appropriately interactive HEENT: Normocephalic, atraumatic. External ears without defect. Pupils equal, round, and reactive to light and accommodation. Anicteric sclerae, moist conjunctivae, and no lid lag. Oropharynx free of erythema and cobble stoning with moist mucosa. Neck: Supple with full range of motion. No jugular venous distension. No bruits. axillarry tender erythematous LNs with pustule overlying it Cardiovascular: Regular rate and rhythm with no murmurs, rubs, or gallops appreciated Pulmonary: Clear to auscultation bilaterally with no crackles, wheezes, or rhonchi. Normal respiratory effort with no use of accessory muscles. Abdomen: Bowel tones present. Soft, nontender, nondistended. No hepatosplenomegaly or masses appreciated. Extremities: No clubbing, cyanosis, edema, or lymphadenopathy appreciated. Skin: Several small, domes under left axilla, tender to palpation with mild surrounding erythema Normal temperature, turgor, and texture; no rash, ulcers, or subcutaneous nodules appreciated. Neurological: Decreased sensation of right face, right arm, and right lower extremity. Reduced strength of right lower extremity. Psychiatric: Normal mood and affect. Alert and oriented to person, place, and time. IVs and Medications Medications Reviewed: Medications were reviewed in detail Lab and Diagnostics Result Diagram: 10/13/16 0930 10/13/16 0930 X-Rays, CTs and MRIs CT Head Interpretation IMPRESSION: No definite acute intracranial abnormalities. Chronic lacunar infarct versus prominent perivascular space left basal ganglia. Minimal volume loss and low attenuation of the deep white matter. Study: Head CT no contrast Interpretation / Wet Read by: Interpret - Radiologist 12-lead ECG Normal sinus rhythm with a rate of 93 bpm Assessment & Plan In summary, Abdirahman is a 41-year-old male with a history of seizures since 2004, with a stated history of interest cerebral shunt for hydrocephaly, though stent has not been visible on recent cranial imaging. He was recently admitted for Dilantin overdose and left AMA on 10/10. He has returned after stating he had several seizures today witnessed by his fiance. # left axillary recurrent follicular MRSA pyoderma -He had I&D of left axilla abscess twice in the last 1 month in ED. He was treated with bactrim oral antibiotics.culture from prior I&D shows MRSA sensitive to Bactrim. -continue vancomycin -lidocain gel -pain control with dilaudid -surgery Dr Estevez and ID Dr Oden consulted - HIV nonreactive -He has more recurrence of problem may benefit from topical clindamycin and/or intermittent doxycycline per ID Dr. Oden #. Tonic-clonic seizures, active, present on admission -Patient had seizures while he had supratherapeutic Dilantin level. Breakthrough seizure due to Dilantin failure despite toxic level versus seizure due to Dilantin toxicity. Dilantin needs to be changed either ways .dilantin level subtherapeutic now -Started oral Keppra 500 mg twice a day, with loading dose of 2000 mg. -Monitor neurologic status every 6 hours #. Dilantin overdose, resolving, present on admission -Levels were supratherapeutic on admission despite not having taken this medication in several days -No treatment indicated at this time Patient Status: Inpatient discharge in 2-3 days Kishan Parnell MD Oct 14, 2016 14:52
[2016-10-14] MEDS ORDERED: Lactated Ringer's 1,000 ML IV SCH (15:08)
[2016-10-14] MEDS ORDERED: Lactated Ringer's 500 ML IV PRN (15:08)
[2016-10-14] MEDS ORDERED: EPHEDrine Sulfate 50 mg/mL Inj IVPUSH PRN (15:10)
[2016-10-14] MEDS ORDERED: Phenylephrine 10,000 mCg/mL Inj IVPUSH PRN (15:10)
[2016-10-14] MEDS ORDERED: MetoCLOpramide 5 mg/mL 2 mL Inj IVPUSH PRN (15:10)
[2016-10-14] MEDS ORDERED: Ondansetron 2 mg/mL 2 mL Inj IVPUSH PRN (15:10)
[2016-10-14] MEDS ORDERED: Dexamethasone 4 mg/mL Inj IVPUSH PRN (15:10)
[2016-10-14] MEDS: fentaNYL-PF 50 mCg/mL 2 mL Inj IVPUSH PRN ×2 (15:37→15:52)
--- NOTE | 2016-10-14 15:59 | OP ---
[address] [address] OPERATIVE REPORT PATIENT: VERN MELLO : 1975 MR#: [id number] ADMIT: 10/12/2016 JOB ID: [id number] DATE OF SURGERY: 10/14/2016 SURGEON: Jacqueline Goetz MD ASSISTANTS: Chris Blevins PA-C; MEG StarksIII (the presence of an assistant activities director was necessary for retraction and suction). PREOPERATIVE DIAGNOSIS(ES): Left axillary abscesses x5. POSTOPERATIVE DIAGNOSIS(ES): Left axillary abscesses x5; presumed diagnosis of hidradenitis suppurativa. PROCEDURE PERFORMED: Incision and drainage of left axillary abscesses x5. HISTORY OF PRESENT ILLNESS: This is a 41-year-old man who presented to the hospital two days ago with a recent history of seizures which had been witnessed by his fiancee. He was also complaining of headache and weakness. On examination, he was found to have several abscesses in the left axilla. My partner consulted and recommended incision and drainage. This was deferred until overnight because he had eaten yesterday. FINDINGS: Five separate subcutaneous abscesses were present in the axilla, and all were surrounded by indurated tissue. Overall constellation of intraoperative findings was consistent with hidradenitis suppurativa. DESCRIPTION OF PROCEDURE: The patient was brought to the operative suite, and placed in supine position. General anesthesia was induced. A warming blanket and SCDs were placed. The operative field was prepped and draped in sterile fashion. A preprocedural pause was performed to confirm the correct patient, procedure, and site. Antibiotics had been infused previously on the floor. The left axilla was examined and found to contain several abscesses. A small amount of purulent tissue was suctioned from one of the abscesses and sent for culture. Each abscess was incised and drained using a combination of an aspiration needle to confirm the location, followed by electrocautery to open the skin. Each incision was between 1 and 2 cm in length. Hemostasis was achieved and copious irrigation was performed. Given that the overall constellation of findings is consistent with hidradenitis suppurativa, I considered excision of the entire area in the operating room, however, but deferred this for a later date in order that the overall region of inflamed and indurated tissue may decrease after incision and drainage of the current abscesses, and so that a discussion may be had with the patient regarding this procedure and its implications. COMPLICATIONS: None. SPECIMENS: Purulent fluid from the left axilla, sent for culture. BLOOD LOSS: 10 mL. Of note, each abscess cavity was packed with NuGauze and a sterile dressing was placed.
[2016-10-14] MEDS: Vancomycin Inj 1,000 MG in IV Premix 1 EACH IV SCH (16:30)
--- NOTE | 2016-10-14 17:54 | NUR ---
Pain Pt c/o 10 pain to L axilla regardless of medications or interventions provided. Pt requesting various changes to pain medications such as "give my meds a 1/2 hour early" and "can you mix this pain medication with the other one" and questioning if Percocet medication is actually Percocet due to stamping on the pill as well as content of syringe containing Dilaudid "the top is the wrong color." Denied offer for ice. Upon return from OR, pt c/o 11/18 pain which QUALITY SYSTEMS MANAGER reported as well. Spoke with MD who changed PRN Dilaudid to Q3 hours PRN. Currently sitting up in bed, playing on phone and talking with fiance at bedside. Bed in lowest, locked position and call light in reach.
--- NOTE | 2016-10-14 18:14 | PCM.ANEP1 ---
Post Anesthesia PACU Phase 1 Assessment Vital Signs Vital Signs Date Time Temp Pulse Resp B/P Pulse Ox O2 Delivery O2 Flow Rate FiO2 10/14/16 17:26 37.0 88 16 119/72 94 Room Air 10/14/16 15:59 89 13 120/82 95 Nasal Cannula 3 10/14/16 15:52 100 12 123/84 93 Nasal Cannula 3 10/14/16 15:45 88 11 125/82 92 Nasal Cannula 3 10/14/16 15:41 87 12 129/85 93 Room Air 10/14/16 15:35 95 24 127/85 90 Room Air 10/14/16 15:32 95 25 127/77 94 Room Air 10/14/16 15:26 36.7 85 18 132/77 99 Simple Mask 10 Level of Alertness: Awake, talking Pain: Yes Pain Scale Score: 10 Nausea or Vomiting: No CV Function & Hydration Stable: Yes Airway Device: None Oxygen Delivery: Room Air Lungs: Normal Air Movement PACU Phase 2 Assessment Complications: No Follow up Care: N/A Patient Instructions Provided: N/A Magnus Cheema MD Oct 14, 2016 18:14
--- NOTE | 2016-10-14 22:30 | NUR ---
Left arm swelling Patient reported at 2149 that since he had the surgery to left axilla earlier today, left arm is "hard and swollen". Assessed affected arm, is more firm than right arm. Measured around elbow and bicep- right bicep 24.5 cm, left bicep 27.5 cm. Right elbow 24 cm, left elbow 26 cm. Removed LAYO wrap that was around left axilla, patient reported immediate relief, but still swollen and firm. Surgeon paged, immediate call back. Updated surgeon on patient's condition- no new orders. MD recommended to leave LAYO wrap off and just put ABD under arm to catch any drainage from axilla, and to keep an eye on swelling. Patient updated on phone call to surgeon. Addendum: 10/15/16 at 0415 by TRMEAYNE ROONEY RN Reassessed left arm at 0030- arm is softer, elbow measurement is 24.5 cm and bicep is 26.5 cm. No new drainage noted on ABD pad.
[2016-10-15] VITALS (7 sets, daily range): BP systolic 122–135; BP diastolic 80–83; PULSE 69–88; RESP 16–20; O2SAT 94–96
[2016-10-15] MEDS: Vancomycin Inj 1,000 MG in IV Premix 1 EACH IV SCH ×2 (00:33→09:21)
[2016-10-15] MEDS: HYDROmorphone 1 mg/mL Inj IVPUSH PRN ×8 (00:40→21:41)
[2016-10-15] MEDS: oxyCODONE-Acetamin 10-325 mg Tablet PO PRN ×6 (01:59→23:16)
[2016-10-15] MEDS: Dextrose 5% 0.45% NaCl 1,000 ML IV SCH (05:18)
[2016-10-15] MEDS ORDERED: Vancomycin Serum Trough XX ONE (08:00)
[2016-10-15] MEDS: Vancomycin Dose per Pharmacist XX SCH (08:30)
[2016-10-15] MEDS: levETIRAcetam 500 mg Tablet PO SCH ×2 (08:52→21:07)
[2016-10-15] MEDS: Mupirocin 2% 22 Gm Ointment TOPICAL SCH ×2 (08:53→21:07)
[2016-10-15] MEDS ORDERED: Oritavancin Diphosphate 1,200 MG in Dextrose 5% 1,000 ML IV ONE (10:55)
--- NOTE | 2016-10-15 11:24 | PCM.PNSURG ---
Subjective Visit Information: Reason for Visit Seizures Surgery/Surgery Date Post-Op Day # Date of Admission: Oct 12, 2016 at 00:46 Hospital Day # Subjective: Stable overnight. Complains of pain in the left axilla. Objective Vital Sign- Last 8 Hours Date Time Temp Pulse Resp B/P Pulse Ox O2 Delivery O2 Flow Rate FiO2 10/15/16 10:07 76 10/15/16 09:54 36.8 83 18 135/80 Room Air 10/15/16 06:02 36.5 82 20 134/82 94 Room Air Intake and Output- Last 8 Hour 10/15/16 Cumulative From/Thru 07:00 10/11/16 18:52 - 10/15/16 06:02 Intake Total 2303 ml 9481 ml Output Total 2450 ml 8465 ml Balance -147 ml 1016 ml Intake Oral 1200 ml 6020 ml IV Total 1103 ml 3461 ml Output Urine Total 2450 ml 8465 ml # Voids 4 # Bowel Movements 1 2 General: Alert, Oriented X3, Cooperative, No Acute Distress Extremities: Other (left axilla has indwelling Nu Gauze in abscess cavities. There is still surrounding induration.) Result Diagram: 10/13/16 0930 10/13/16 0930 Assessment & Plan Impression Postoperative day one incision and drainage of left axillary abscesses. I believe he has had hidradenitis suppurativa of that location. Problems: Plan 1. Wound care consult. 2. Maximal medical management of hidadrenitis suppurativa given his overall psychosocial situation. I would suggest clindamycin topical ointment if Dr. Oden agrees, and consider glucocorticoids. TNF alpha inhibitors have also been used, although, this may be difficult to arrange for this patient. Intralesional corticosteroids have been used as well. 3. He will likely require excision of the involved tissue of the left axilla. However, if this were to be completed in the next several days, it would require excision of a significant portion of axillary tissue. I therefore recommend medical management as noted above for several weeks. He should follow up with me either at the wound healing center or in my clinic. Depending on the amount of tissue that ultimately needs to be removed, he may also need to see a plastic surgeon, which I will decide after he has undergone medical management. Jacqueline Goetz MD Oct 15, 2016 11:24
--- NOTE | 2016-10-15 11:52 | PROG NOTE ---
[address] [address] PROGRESS NOTE PATIENT: VERN MELLO : 1975 MR#: [id number] ADMIT: 10/12/2016 JOB ID: [id number] DATE: 10/15/2016 INFECTIOUS DISEASE FOLLOW UP NOTE: REASON FOR FOLLOWUP: Severe left axillary abscesses likely due to hidradenitis. INTERVAL HISTORY: Overnight, the patient continues to complain of a great deal of pain despite successful debridement of the left axillary abscesses done by Dr. Jacqueline Goetz. The patient does not have fevers, chills, sweats, cough, nausea or vomiting today. I discussed this case with Dr. Goetz yesterday after her successful drainage of these multiple large abscesses. Like me, she agrees that the diagnosis here is likely hidradenitis and she is reaching out to a antique clock repairer for some help. She thinks that after the acute infection subsides it may be reasonable to do an en bloc resection of all the follicular tissue in the axilla but she should wait at least a couple weeks or more until the acute inflammation has subsided. PHYSICAL EXAMINATION: Reveals an afebrile gentleman, temperature 36.8, pulse 76, respiratory rate 18, blood pressure 135/80 saturating well on room air. Lungs are clear. Abdomen benign. The left axilla looks much improved after drainage of the several large abscesses. LABORATORIES: Include white count a couple days ago normal 8600. Creatinine also normal 0.76. HIV is negative. Cultures from the axilla are growing Staph aureus already. We do not know yet if it is MRSA or MSSA and it may not make that much difference. IMPRESSION: This patient likely had severe and recurring left axillary hidradenitis. Prior cultures have yielded MRSA and this culture is already positive for Staph aureus which will likely also be MRSA. The patient has a history of unusual seizures which may represent pseudoseizures and his compliance with oral outpatient antibiotic therapy might not be the best given that he recently was admitted with a Dilantin toxicity after being treated with Dilantin in the ED for possible seizures. I am also concerned about giving the patient an IV line to be used as an outpatient and I think the simplest course here, though expensive, would be give him a single dose of oritavancin which would work for either MSSA or MRSA. RECOMMENDATIONS: 1. We continue with Bactroban for 10 days to the nares. 2. Will stop his vanco today and give a single dose of oritavancin. 3. I think the patient could be discharged at any time following the receipt of the oritavancin as long as there are provisions for wound care. 4. The patient will be following up with Dr. Goetz of surgery and I understand efforts are underway for him to see Dermatology. 5. I have no particular opinion as to whether steroids or doxycycline would be a better oral option in this case, but I know that both are under consideration. 6. As there is little else to do from an ID point of view and I think the patient is nearly ready for discharge, I am going to go ahead and sign off at this time.
--- NOTE | 2016-10-15 15:27 | PCM.PNMED ---
Subjective Date of Service Oct 15, 2016 Subjective Underwent I&D of left axillary abscess./hyderadenitis supuritiva Exam Vital Signs Vital Sign - Last Date Time Temp Pulse Resp B/P Pulse Ox O2 Delivery O2 Flow Rate FiO2 10/15/16 13:45 36.4 69 20 122/81 96 Room Air 10/14/16 15:59 3 Intake and Output 10/14/16 10/14/16 10/15/16 Cumulative From/Thru 15:00 23:00 07:00 10/11/16 18:52 - 10/15/16 06:02 Intake Total 1386 ml 1289 ml 2303 ml 9481 ml Output Total 2240 ml 1800 ml 2450 ml 8465 ml Balance -854 ml -511 ml -147 ml 1016 ml Intake Oral 400 ml 937 ml 1200 ml 6020 ml IV Total 986 ml 352 ml 1103 ml 3461 ml Output Urine Total 2240 ml 1800 ml 2450 ml 8465 ml # Voids 4 # Bowel Movements 0 1 2 Exam General: No acute distress, well-developed, well-nourished, appropriately interactive HEENT: Normocephalic, atraumatic. External ears without defect. Pupils equal, round, and reactive to light and accommodation. Anicteric sclerae, moist conjunctivae, and no lid lag. Oropharynx free of erythema and cobble stoning with moist mucosa. Neck: Supple with full range of motion. No jugular venous distension. No bruits. axillarry tender erythematous LNs site s/p I&D,gauze packs in place . scant purulent matter on gauze Cardiovascular: Regular rate and rhythm with no murmurs, rubs, or gallops appreciated Pulmonary: Clear to auscultation bilaterally with no crackles, wheezes, or rhonchi. Normal respiratory effort with no use of accessory muscles. Abdomen: Bowel tones present. Soft, nontender, nondistended. No hepatosplenomegaly or masses appreciated. Extremities: No clubbing, cyanosis, edema, or lymphadenopathy appreciated. Skin: Several small, domes under left axilla, tender to palpation with mild surrounding erythema Normal temperature, turgor, and texture; no rash, ulcers, or subcutaneous nodules appreciated. Neurological: Decreased sensation of right face, right arm, and right lower extremity. Psychiatric: Normal mood and affect. Alert and oriented to person, place, and time. IVs and Medications Medications Reviewed: Medications were reviewed in detail Lab and Diagnostics Result Diagram: 10/13/1692910/13/16929 X-Rays, CTs and MRIs CT Head Interpretation IMPRESSION: No definite acute intracranial abnormalities. Chronic lacunar infarct versus prominent perivascular space left basal ganglia. Minimal volume loss and low attenuation of the deep white matter. Study: Head CT no contrast Interpretation / Wet Read by: Interpret - Radiologist 12-lead ECG Normal sinus rhythm with a rate of 93 bpm Assessment & Plan In summary, Abdirahman is a 41-year-old male with a history of seizures since 2004, with a stated history of interest cerebral shunt for hydrocephaly, though stent has not been visible on recent cranial imaging. He was recently admitted for Dilantin overdose and left AMA on 10/10. He has returned after stating he had several seizures today witnessed by his fiance. # left axillary recurrent follicular MRSA pyoderma /Hyderadenitsi suppurativa -He had I&D of left axilla abscess twice in the last 1 month in ED. He was treated with bactrim oral antibiotics.culture from prior I&D shows MRSA sensitive to Bactrim. -s/p I&D 10/14 -Initially treated with vancomycin .Oritavancin to be given today -may require additional excision of involved axillary tissue once the acute infection improves. Follow-up with Dr. Goetz outpatient for that -Dr Goetz discussed case with dermatology Dr. Vinnie Altamirano. He recommends clindamycin topical and doxycycline oral up on discharge.he will follow him outpatient -pain control with dilaudid -surgery Dr Estevez and ID Dr Oden consulted - HIV nonreactive #. Tonic-clonic seizures, active, present on admission -Patient had seizures while he had supratherapeutic Dilantin level. Breakthrough seizure due to Dilantin failure despite toxic level versus seizure due to Dilantin toxicity. Dilantin needs to be changed either ways .dilantin level subtherapeutic now -Started oral Keppra 500 mg twice a day, with loading dose of 2000 mg. -Monitor neurologic status every 6 hours #. Dilantin overdose, resolving, present on admission -Levels were supratherapeutic on admission despite not having taken this medication in several days -No treatment indicated at this time Patient Status: Inpatient discharge tomorrow Kishan Parnell MD Oct 15, 2016 15:27
--- NOTE | 2016-10-15 16:25 | NUR ---
Left axilla pain PRN Dilaudid IV given 3 times and PRN percocet given 2 times so far this shift for pain 9-10/10 with some relief. hospitalist aware. Patient was seen by Dr. Goetz this morning, see note. IV Oritavancin ABO given as ordered this shift. Wound care nurse at bed side for wound care left axilla. Continue contact precautions due to MRSA in nares and Bactroban cream as ordered. Stable vitals signs and afebrile. No sign and symptoms of nausea or vomiting noted or reported by patient. Fiance at bed side. per Tele SR 73. continue to monitor.
--- NOTE | 2016-10-15 17:02 | NUR ---
Inpatient Wound Nurse Patient seen for wound care of L axilla. Five debrided areas with packing are found; removed Nugauze saturated with serosanguinous fluid. Removal of packing and repacking extremely painful for patient despite recent dilaudid dose and use of topical lidocaine. Wounds were cleansed with NS and blotted dry. Wounds were packed with Nugauze and sterile Q tip, then covered with ABD. Patient declined tape or other measures to hold ABD in place, stated that he would be able to keep dressing secure with arm placement. CWON RN will check with Dr. Goetz tomorrow and ensure that this dressing change regimen is the preferred regimen.
--- NOTE | 2016-10-15 17:07 | NUR ---
Social Work-continued d/c planning: Data:EMR reviewed. Pt is on day 3 of hospitalization for seizures per H&P. Pt is not medically stable anticipate 1-2 more days. ID and surgery both involved. Surgery has placed a wound care consult for pt. Pt will likely have to follow up at the wound care center post discharge. Pt has been up independent in his room. Pt and SO had been living in a tent, but they have bought a trailer and plan to move into this. SW will continue to follow for needs. Assessment:Pt who is independent at baseline. Plan:Pt to discharge to his trailer when medically stable via POV. Wound care consult pending, follow for wound care needs. Pt will likely have to follow up at the wound care center post discharge. SW will continue to follow for needs. CLAUDIA White
[2016-10-16 00:09] VITALS: PULSE 75
[2016-10-16] MEDS: HYDROmorphone 1 mg/mL Inj IVPUSH PRN ×4 (00:44→10:24)
[2016-10-16 01:50] VITALS: BP 131/74; PULSE 67; RESP 18; O2SAT 95
[2016-10-16 02:39] VITALS: PULSE 63
[2016-10-16] MEDS: oxyCODONE-Acetamin 10-325 mg Tablet PO PRN ×2 (03:29→08:52)
[2016-10-16 05:22] VITALS: BP 103/62; PULSE 76; RESP 16; O2SAT 95
[2016-10-16 06:46] LABS: BASOPHILS % (AUTO) 0.7 % (0-3); EOSINOPHILS % (AUTO) 4.1 % (0-5); MONOCYTES % (AUTO) 10.1 % (4-12); Mean Corpuscular Hemoglobin 31.8 pg (27.0-35.0); NEUTROPHILS % (AUTO) 58.7 % (40-74); Platelet Count 171 bil/L (150-400)
[2016-10-16 08:00] VITALS: PULSE 82
[2016-10-16] MEDS: levETIRAcetam 500 mg Tablet PO SCH (08:51)
[2016-10-16] MEDS: Mupirocin 2% 22 Gm Ointment TOPICAL SCH (08:53)
--- NOTE | 2016-10-16 09:25 | PCM.DIMED ---
Discharge Instructions Date of Service Oct 16, 2016 Dates of Hospitalization Oct 12, 2016 at 00:46 Discharge Diagnosis Discharge Diagnosis # left axillary recurrent follicular MRSA pyoderma /Hyderadenitis suppurativa status post I&D #. Tonic-clonic seizures, active, present on admission #. Dilantin overdose, resolving, present on admission Diet Discharge Diet: No restrictions Activity Discharge Activity: Limited until seen by PCP Call your provider Call your provider for: Fever or Chills, Shortness of breath, Bleeding, Chest pain, Vomitting, Excessive diarrhea Patient Instructions Patient Instructions # You were hospitalized due to breakthrough seizure.You also had Dilantin toxicity. Dilantin is discontinued now. Please continue Keppra as prescribed. # You also had left axillary recurrent MRSA soft tissue infections/ Hyderadenitis suppurativa . You underwent incision and drainage. You may need further debridement. Please follow-up with Dr. Goetz for that . You have been treated with IV antibiotics. Oritavancin/long-acting antibiotics administered. No need for oral antibiotics now. Please continue clindamycin ointment. Please follow-up with assistant site manager on October 21 as scheduled. Provider: Jacqueline Goetz MD Follow-up in: 1 week Mid-level Provider (F9): Jason Altamirano DO Follow-up with Mid-level in: 1 week Kishan Parnell MD Oct 16, 2016 09:25
[2016-10-16] MEDS ORDERED: CLIN40GE TP (09:27)
[2016-10-16] MEDS ORDERED: KEP500TA PO (09:27)
[2016-10-16] MEDS ORDERED: OXYC-466 PO (09:27)
[2016-10-16] MEDS ORDERED: SENN-133 PO (09:27)
--- NOTE | 2016-10-16 10:23 | PCM.PNSURG ---
Subjective Visit Information: Reason for Visit Seizures Surgery/Surgery Date Post-Op Day # Date of Admission: Oct 12, 2016 at 00:46 Hospital Day # Subjective: Yesterday I discussed this case with Dr. Altamirano of dermatology, and Dr. Parnell. Outpatient follow-up has been arranged with Dr. Altamirano of dermatology given a presumed diagnosis of hidadrenitis suppurativa. He still has pain and induration in the left axilla. Objective Vital Sign- Last 8 Hours Date Time Temp Pulse Resp B/P Pulse Ox O2 Delivery O2 Flow Rate FiO2 10/16/16 08:00 82 10/16/16 05:22 36.5 76 16 103/62 95 Room Air 10/16/16 02:39 63 Intake and Output- Last 8 Hour 10/16/16 Cumulative From/Thru 07:00 10/11/16 18:52 - 10/16/16 05:43 Intake Total 350 ml 43006 ml Output Total 1200 ml 35913 ml Balance -850 ml 2318 ml Intake Oral 350 ml 7630 ml IV Total 5203 ml Output Urine Total 1200 ml 97510 ml # Voids 4 # Bowel Movements 0 3 General: Alert, Oriented X3, Cooperative, No Acute Distress Result Diagram: 10/16/16 0557 10/16/16 0557 Assessment & Plan Impression 41-year-old male with probable hidradenitis suppurativa of the left axilla. He is postoperative day 2 from incision and drainage of 5 abscesses in that region. Problems: Plan 1. Outpatient follow-up with Dr. Altamirano of dermatology for management of hidadrenitis. 2. He will follow up with me as well after he has seen Dr. Altamirano. 3. Antimicrobials per Dr. Oden. Per my discussion with Dr. Altamirano, recommend topical clindamycin. I do not think doxycycline is necessary as he has received oritavancin. Jacqueline Goetz MD Oct 16, 2016 10:23
--- NOTE | 2016-10-16 11:08 | NUR ---
Discharge Pt. discharged to home at 1045 in stable condition. Walking, accompanied by and PAYROLL BOOKKEEPER. IV x2 and tele dc'd prior to discharge. Pt. sent home with all wound dressing supplies and belongings. All f/u appointments reviewed and pt. states understanding. Educated on medications and s/s of infection. Denies questions or concerns.
--- NOTE | 2016-10-16 11:45 | NUR ---
Social Work: Discharge Data & Assessment: EMR reviewed. Patient is on day 4 of hospitalization for seizures. Patient was discussed in morning rounds. Patient has been deemed medically stable for discharge today per MD. Patient will discharge home today with no needs. Patient's significant other has been taught how to change patient's dressings therefore, home health services will not be needed. Transportation will be provided by significant other. Patient has no additional needs at this time. Plan: Patient will discharge home today. Significant other will provide transportation needs. No additional needs are anticipated at this time. CLAUDIA Espinosa
--- NOTE | 2016-10-16 15:11 | NUR ---
Inpatient Wound Nurse Patient is ready to discharge, he is seen for wound care of L axilla. Dressings packed yesterday removed more easily today, less painful. Beefy red wound beds with much less drainage. Most distal wound is erythemic and raised with pale yellow rim. Gentle palpation elicited no drainage. Wounds were cleansed and blotted dry, then packed with Nugauze using sterile Q tip, then covered with ABD. Patient agreed to LAYO wrap to hold entire dressing in place. Steps of dressing change were reviewed with patient's SO, who stated that she completed wound care class and provided wound care when she worked as MUSIC INSTRUCTOR. She stated understanding of all information provided. All supplies needed were sent home with patient. Patient stated that he sees dermatology on Thursday and Dr. Goetz on Thursday, and so, no follow up at [facility] is scheduled. Patient was instructed to keep all appointments, keep dressing clean and dry, and complete medication regimen as scheduled. He stated understanding and intended compliance.
--- NOTE | 2016-10-16 15:42 | PCM.DC.MED ---
Discharge Summary Date of Service Oct 16, 2016 Dates of Hospitalization Date of Hospital Admission Oct 12, 2016 at 00:46 Date of Discharge: Oct 16, 2016 Providers: Admitting Physician: Sulma Fitzpatrick DO Primary Care Physician: Melonie Delarosa Attending Physician: Kishan Dowd MD Diagnosis at Time of Discharge Diagnosis at Time of Discharge # left axillary recurrent follicular MRSA pyoderma /Hyderadenitis suppurativa status post I&D #. Tonic-clonic seizures, active, present on admission #. Dilantin overdose, resolving, present on admission Consultations surgery Dr Bishnu Oden dermatology Dr Altamirano Procedures XRay, CTs & MRIs CT Head Interpretation IMPRESSION: No definite acute intracranial abnormalities. Chronic lacunar infarct versus prominent perivascular space left basal ganglia. Minimal volume loss and low attenuation of the deep white matter. Study: Head CT no contrast Interpretation / Wet Read by: Interpret - Radiologist ECG 12 Lead Normal sinus rhythm with a rate of 93 bpm Brief History per HPI Abdirahman is a 41-year-old male with a history of seizures that was recently admitted for a Dilantin overdose, but left AMA before we could get his newly prescribed Keppra to therapeutic levels. He presents today after having several seizures which were witnessed by his fiance. He complains of headache and weakness on his right side that has been chronic. He denies chest pain, shortness of breath. day 2 of admission he developed sudden onset left axillary painful swelling. had 2 episodes of Similar swellings s/p I&D. Prior Cultures growing MRSA Hospital Course In summary, Abdirahman is a 41-year-old male with a history of seizures since 2004, with a stated history of interest cerebral shunt for hydrocephaly, though stent has not been visible on recent cranial imaging. He was recently admitted for Dilantin overdose and left AMA on 10/10. He has returned after stating he had several seizures today witnessed by his fiance. # left axillary recurrent follicular MRSA pyoderma /Hyderadenitsi suppurativa -He had I&D of left axilla abscess twice in the last 1 month in ED. He was treated with bactrim oral antibiotics.culture from prior I&D shows MRSA sensitive to Bactrim. -s/p I&D 10/14, growing MRSA again -Local wound care with packing twice daily. Fiance is [employer]RB[employer] RENEWAL MANAGER and will be doing it at home -Initially treated with vancomycin .Oritavancin given 10/15. No need for oral antibiotics upon discharge. -may require additional excision of involved axillary tissue once the acute infection improves. Follow-up with Dr. Goetz outpatient for that -Dr Goetz discussed case with dermatology Dr. Vinnie Altamirano. He recommends clindamycin topical and doxycycline oral up on discharge.he will follow him outpatient . Appointment October 21 -surgery Dr Estevez and ID Dr Oden consulted -Pain control Percocet - HIV nonreactive #. Tonic-clonic seizures, active, present on admission -Patient had seizures while he had supratherapeutic Dilantin level. Breakthrough seizure due to Dilantin failure despite toxic level versus seizure due to Dilantin toxicity. Dilantin needs to be changed either ways .dilantin level subtherapeutic now -Started oral Keppra 500 mg twice a day, with loading dose of 2000 mg. -Discharge on Keppra 500 mg bid #. Dilantin overdose, resolving, present on admission -Levels were supratherapeutic on admission despite not having taken this medication in several days -No treatment indicated at this time Patient Status: Inpatient discharge home Exam Vital Signs (Last) Date Time Temp Pulse Resp B/P Pulse Ox O2 Delivery O2 Flow Rate FiO2 10/16/16 08:00 82 10/16/16 05:22 36.5 16 103/62 95 Room Air 10/14/16 15:59 3 Exam General: No acute distress, well-developed, well-nourished, appropriately interactive HEENT: Normocephalic, atraumatic. External ears without defect. Pupils equal, round, and reactive to light and accommodation. Neck: Supple with full range of motion. No jugular venous distension. No bruits. axillarry tender erythematous LNs site s/p I&D,gauze packs in place . scant purulent matter on gauze Cardiovascular: Regular rate and rhythm with no murmurs, rubs, or gallops appreciated Pulmonary: Clear to auscultation bilaterally with no crackles, wheezes, or rhonchi. Normal respiratory effort with no use of accessory muscles. Abdomen: Bowel tones present. Soft, nontender, nondistended. No hepatosplenomegaly or masses appreciated. Extremities: No clubbing, cyanosis, edema, or lymphadenopathy appreciated. Skin: Several small, domes under left axilla, tender to palpation with mild surrounding erythema Normal temperature, turgor, and texture; no rash, ulcers, or subcutaneous nodules appreciated. Neurological: Decreased sensation of right face, right arm, and right lower extremity. Psychiatric: Normal mood and affect. Alert and oriented to person, place, and time. Test 10/11/16 19:30 10/12/16 00:25 10/13/16 09:30 10/13/16 10:45 Hold Purple Top Tube Received (Received) Hold Blue Top Tube Received (Received) Hold Red Top Tube Received (Received) Hold Raymond Top Tube Received (Received) Hold Harvey Top Tube Received (Received) Salicylates Level 3.0ug/mL (30-250) Acetaminophen Level 15.0ug/mL Rx (10-25) Alcohols 91mg/dL (0-10) Hold Urine Received (Received) Procalcitonin 0.02ng/mL (0.00-0.08) Phenytoin (Dilantin) Level 9.7uG/mL (10.0-20.0) Levetiracetam (Keppra) Level 14.1ug/mL (10.0-40.0) HIV (1&2) Ag and Ab, 4th Generation Non reactive (Non Reactive) Test 10/15/16 07:05 10/16/16 05:57 Vancomycin Level Trough 11.4mcg/mL White Blood Count 5.3th/mm3 (3.8-10.1) Red Blood Count 4.34mil/mm3 (4.40-5.80) Hemoglobin 13.8g/dL (13.8-17.2) Hematocrit 40.8% (41.0-50.0) Mean Corpuscular Volume 94.0fL (81-100) Mean Corpuscular Hemoglobin 31.8pg (27.0-35.0) Mean Corpuscular Hemoglobin Concent 33.8% (32.0-37.0) Red Cell Distribution Width 12.3% (12.3-15.4) Platelet Count 171bil/L (150-400) Neutrophils (%) (Auto) 58.7% (40-74) Lymphocytes (%) (Auto) 26.2% (14-46) Monocytes (%) (Auto) 10.1% (4-12) Eosinophils (%) (Auto) 4.1% (0-5) Basophils (%) (Auto) 0.7% (0-3) Sodium Level 138mEq/L (134-144) Potassium Level 4.1mEq/L (3.5-5.2) Chloride Level 100mEq/L (97-108) Carbon Dioxide Level 27mmol/L (18-29) Blood Urea Nitrogen 12mg/dL (6-24) Creatinine 0.90mg/dL (0.76-1.27) Estimat Glomerular Filtration Rate 98mL/min (>59) Glucose Level 118mg/dL (60-99) Calcium Level 8.8mg/dL (8.5-10.1) Total Bilirubin 0.2mg/dL (0.0-1.2) Aspartate Amino Transf (AST/SGOT) 25U/L (0-50) Alanine Aminotransferase (ALT/SGPT) 35U/L (0-44) Alkaline Phosphatase 89U/L (25-150) Total Protein 6.0g/dL (6.4-8.4) Albumin 3.7g/dL (3.4-5.0) Discharge Medications Discharge Medications Clindamycin Phosphate (Clindagel) 40 Ml Gel..ml. 1 APPLIC TP BID Prescribed by: KISHAN DOWD MD Levetiracetam (Keppra) 500 Mg Tablet 500 MG PO BID Prescribed by: KISHAN DOWD MD As needed Sennosides (Senna) 8.6 Mg Tablet 17.2 MG PO BID PRN PRN For Constipation Prescribed by: KISHAN DOWD MD oxyCODONE-Acetaminophen 10-325 mg (oxyCODONE-Acetaminophen 10-325 mg) 1 Each Tablet 1 TAB PO Q4H PRN PRN For Pain Prescribed by: KISHAN DOWD MD Followup Plan Disposition: Home Discharge Diet: No restrictions Discharge Activity: Limited until seen by PCP Patient Instructions # You were hospitalized due to breakthrough seizure.You also had Dilantin toxicity. Dilantin is discontinued now. Please continue Keppra as prescribed. # You also had left axillary recurrent MRSA soft tissue infections/ Hyderadenitis suppurativa . You underwent incision and drainage. You may need further debridement. Please follow-up with Dr. Goetz for that . You have been treated with IV antibiotics. Oritavancin/long-acting antibiotics administered. No need for oral antibiotics now. Please continue clindamycin ointment. Please follow-up with acute care physical therapist on October 21 as scheduled. Provider: Jacqueline Goetz MD Follow-up in: 1 week Mid-level Provider: Jason Altamirano DO Follow-up with Mid-level in: 1 week Time spent 35 minutes coordinating discharge, counseling and answering questions copies to: Jacqueline Goetz MD; Jason Altamirano Melaku MD Oct 16, 2016 15:42
== END 2016-10-16 11:00 | disposition home or self-care (01) | DRG 603 ==
LOC: SED 18:38 → MPC 10-12 00:46
PROVIDERS: ADMIT Internal Medicine; ATTEND Internal Medicine
PROC: 0J9F0ZX Drainage of Left Upper Arm Subcutaneous Tissue and Fascia, Open Approach, Diagnostic (ICD-10-PCS; principal; 2016-10-14 13:00)
DX: L02.412 Cutaneous abscess of left axilla (principal); A49.02 Methicillin resistant Staphylococcus aureus infection, unspecified site; L73.2 Hidradenitis suppurativa; G40.909 Epilepsy, unspecified, not intractable, without status epilepticus; F17.200 Nicotine dependence, unspecified, uncomplicated; F12.90 Cannabis use, unspecified, uncomplicated; F41.8 Other specified anxiety disorders; Z22.322 Carrier or suspected carrier of Methicillin resistant Staphylococcus aureus; T42.0X1D Poisoning by hydantoin derivatives, accidental (unintentional), subsequent encounter